=== PATIENT | female | born 1945 | race Native Hawaiian/Other Pacific Islander ===

== ENCOUNTER 2017-08-31 13:54 | Emergency (ER) | payer MEDICARE ==
[2017-08-31] MEDS ORDERED: methylPREDNISolone SOD SUCCI 125 MG/2 ML VIAL IV STA (14:09)
[2017-08-31] MEDS ORDERED: IPRATROPIUM-ALBUTEROL 3 ML NEB INHALATION STA (14:09)
[2017-08-31 14:46] LABS: Basophils # (A) 0.1 k/uL (0-0.2); Basophils % (A) 1 %; Eosinophils # (A) 0.2 k/uL (0-0.7); Eosinophils % (A) 2 %; HCT 40.5 % (34.0-46.0); HGB 13.5 gm/dL (11.4-16.0); Lymphocytes # (A) 1.1 k/uL (1.0-4.8); Lymphocytes % (A) 14 %; MCH 31.1 pg (25.0-35.0); MCHC 33.3 g/dL (31.0-37.0); MCV 93.2 fL (80.0-100.0); Mean Platelet Volume 7.2; Monocytes # (A) 0.6 k/uL (0-1.0); Monocytes % (A) 7 %; Neutrophils # (A) 6.2 k/uL (1.3-7.7); Neutrophils % (A) 74 %; Platelet Count 217 k/uL (150-450); RBC 4.34 m/uL (3.80-5.40); WBC 8.3 k/uL (3.8-10.6)
[2017-08-31 14:50] LABS: Partial Thromboplastin Time 22.3 sec (22.0-30.0); Prothrombin Time 9.8 sec (9.0-12.0)
[2017-08-31 14:56] LABS: ALT 31 U/L (9-52); AST 26 U/L (14-36); Albumin 4.1 g/dL (3.5-5.0); Alkaline Phosphatase 104 U/L (38-126); Anion Gap 13 mmol/L; Blood Urea Nitrogen 26 mg/dL (7-17); Calcium 9.3 mg/dL (8.4-10.2); Carbon Dioxide 29 mmol/L (22-30); Chloride 100 mmol/L (98-107); Glucose 93 mg/dL (74-99); Potassium 4.4 mmol/L (3.5-5.1); Sodium 142 mmol/L (137-145); Total Bilirubin 0.6 mg/dL (0.2-1.3); Total Protein 7.2 g/dL (6.3-8.2)
[2017-08-31 15:10] LABS: Creatine Kinase 67 U/L (30-135)
[2017-08-31 15:20] LABS: Creatine Kinase MB 1.1 ng/mL (0.0-2.4)
[2017-08-31 15:24] LABS: Troponin I <0.012 ng/mL (0.000-0.034)
--- NOTE | 2017-08-31 15:41 | XR ---
EXAMINATION TYPE: XR chest 2V DATE OF EXAM: 08/31/2017 COMPARISON: 05/23/2013 HISTORY: Shortness of breath with history of COPD difficulty breathing TECHNIQUE: Frontal and lateral views of the chest are obtained. FINDINGS: The lungs are hyperexpanded with chronic interstitial changes. Biapical pleural-parenchyma l thickening is seen, right greater than left. Bullous emphysematous changes are seen in the lung api dawna. There is mild dextroscoliosis of the thoracic spine. There is diffuse osseous demineralization n oted. No pneumothorax or pleural effusion. IMPRESSION: Chronic bullous emphysematous changes with no new focal consolidation to suggest pneumon ia.
--- NOTE | 2017-08-31 15:47 | ED ---
SOB HPI - General Chief Complaint: Shortness of Breath Stated Complaint: SOB Time Seen by Provider: 08/31/17 14:05 Source: patient, RN notes reviewed Mode of arrival: ambulatory Limitations: no limitations - History of Present Illness Initial Comments: This a 72-year-old female presents emergency Department chief complaint of dyspnea. Patient states that she's had some shortness breath last few days. Patient states that this is primarily related to the humidity and increase in temperature. Patient states she does not have air conditioning. Patient states that her symptoms have greatly improved since leaving her house and in the car with urination and pain in the hospital. Patient denies any chest pain but states that she does have some chest tightness associated with shortness breath. 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 Krueger next week. Patient had an appointment with PCP today but missed it due to her condition. Patient is chronic COPD or continue to smoke. She does not have a nebulizer at home. Patient reports no fever no chills. Patient does have slight phlegm with her cough. - Related Data Home Medications Medication Instructions Recorded Confirmed ALPRAZolam [Xanax] 0.25 mg PO BID PRN 08/31/17 08/31/17 Albuterol Sulfate [Proair Hfa] 2 puff INHALATION RT-QID 08/31/17 08/31/17 Aspirin 81 mg PO DAILY 08/31/17 08/31/17 Atorvastatin [Lipitor] 20 mg PO DAILY 08/31/17 08/31/17 Budesonide/Formoterol Fumarate 2 puff INHALATION RT-BID 08/31/17 08/31/17 [Symbicort 160-4.5 Mcg Inhaler] Calcium Carbonate [Calcium] 600 mg PO DAILY 08/31/17 08/31/17 Cholecalciferol [Vitamin D3] 1,000 unit PO DAILY 08/31/17 08/31/17 Enalapril [Vasotec] 10 mg PO DAILY 08/31/17 08/31/17 Furosemide [Lasix] 20 mg PO BID 08/31/17 08/31/17 Ibuprofen [Motrin Ib] 400 mg PO Q6H PRN 08/31/17 08/31/17 Levothyroxine Sodium [Synthroid] 112 mcg PO DAILY 08/31/17 08/31/17 [place]inderhook-3 Fatty Acids/Fish Oil [Fish 1 cap PO HS 08/31/17 08/31/17 Oil 1,000 mg Softgel] Potassium Chloride [K-Tab ER] 10 meq PO DAILY 08/31/17 08/31/17 Ubidecarenone [Co Q-10] 100 mg PO HS 08/31/17 08/31/17 cloNIDine HCL [Catapres] 0.1 mg PO DAILY 08/31/17 08/31/17 Previous Rx's Medication Instructions Recorded Levofloxacin [Levaquin] 500 mg PO DAILY #7 tab 08/31/17 predniSONE 50 mg PO DAILY #5 tab 08/31/17 Allergies Allergy/AdvReac Type Severity Reaction Status Date / Time azithromycin [From Zithromax] Allergy Rash/Hives Verified 08/31/17 14:01 shellfish derived [Shrimp] Allergy Vomiting Verified 08/31/17 14:23 Review of Systems ROS Statement: Those systems with pertinent positive or pertinent negative responses have been documented in the HPI. ROS Other: All systems not noted in ROS Statement are negative. Past Medical History Past Medical History: Heart Failure, COPD, Hyperlipidemia, Hypertension History of Any Multi-Drug Resistant Organisms: None Reported Past Surgical History: No Surgical Hx Reported Past Psychological History: No Psychological Hx Reported Smoking Status: Current every day smoker Past Alcohol Use History: None Reported Past Drug Use History: None Reported General Exam Limitations: no limitations General appearance: alert, in no apparent distress Head exam: Present: atraumatic, normocephalic, normal inspection Eye exam: Present: normal appearance, PERRL, EOMI. Absent: scleral icterus, conjunctival injection, periorbital swelling ENT exam: Present: normal exam, normal oropharynx, mucous membranes moist Neck exam: Present: normal inspection, full ROM. Absent: tenderness, meningismus, lymphadenopathy Respiratory exam: Present: wheezes (Minimal). Absent: normal lung sounds bilaterally, respiratory distress, rales, rhonchi, stridor Cardiovascular Exam: Present: regular rate, normal rhythm, normal heart sounds. Absent: systolic murmur, diastolic murmur, rubs, gallop, clicks Skin exam: Present: warm, dry, intact, normal color. Absent: rash Course Vital Signs 08/31/17 08/31/17 08/31/17 13:57 14:09 14:31 Temperature 95.6 F L Pulse Rate 87 77 Respiratory 28 H 18 18 Rate Blood Pressure 120/61 134/62 O2 Sat by Pulse 96 97 Oximetry 08/31/17 08/31/17 08/31/17 14:46 15:03 15:11 Temperature 98.1 F Pulse Rate 75 77 Respiratory Rate Blood Pressure O2 Sat by Pulse Oximetry 08/31/17 15:54 Temperature 98.5 F Pulse Rate 79 Respiratory 16 Rate Blood Pressure 136/88 O2 Sat by Pulse 97 Oximetry - Reevaluation(s) Reevaluation #1: 08/31/17 16:03 Patient reevaluated states that she feels 100% improved at this time. Patient updated on results. 08/31/17 16:03 Medical Decision Making - Medical Decision Making 72-year-old female presents to the ER for shortness of breath. Patient has a mild COPD exacerbation.'s patient's symptoms also resolved with air conditioning in the vehicle in emergency department. Patient will be discharged with steroids, antibiotics and follow-up with PCP. - Lab Data Result diagrams: 08/31/17 14:28 08/31/17 14:28 Lab Results 08/31/17 08/31/17 08/31/17 Range/Units 14:28 14:28 14:28 WBC 8.3 (3.8-10.6) k/uL RBC 4.34 (3.80-5.40) m/uL Hgb 13.5 (11.4-16.0) gm/dL Hct 40.5 (34.0-46.0) % MCV 93.2 (80.0-100.0) fL MCH 31.1 (25.0-35.0) pg MCHC 33.3 (31.0-37.0) g/dL RDW 13.0 (11.5-15.5) % Plt Count 217 (150-450) k/uL Neutrophils % 74 % Lymphocytes % 14 % Monocytes % 7 % Eosinophils % 2 % Basophils % 1 % Neutrophils # 6.2 (1.3-7.7) k/uL Lymphocytes # 1.1 (1.0-4.8) k/uL Monocytes # 0.6 (0-1.0) k/uL Eosinophils # 0.2 (0-0.7) k/uL Basophils # 0.1 (0-0.2) k/uL PT (9.0-12.0) sec INR (<1.2) APTT (22.0-30.0) sec Sodium 142 (137-145) mmol/L Potassium 4.4 (3.5-5.1) mmol/L Chloride 100 (98-107) mmol/L Carbon Dioxide 29 (22-30) mmol/L Anion Gap 13 mmol/L BUN 26 H (7-17) mg/dL Creatinine 0.60 (0.52-1.04) mg/dL Est GFR (CKD-EPI)AfAm >90 (>60 ml/min/1.73 sqM) Est GFR (CKD-EPI)NonAf >90 (>60 ml/min/1.73 sqM) Glucose 93 (74-99) mg/dL Calcium 9.3 (8.4-10.2) mg/dL Magnesium 2.0 (1.6-2.3) mg/dL Total Bilirubin 0.6 (0.2-1.3) mg/dL AST 26 (14-36) U/L ALT 31 (9-52) U/L Alkaline Phosphatase 104 (38-126) U/L Total Creatine Kinase 67 (30-135) U/L CK-MB (CK-2) 1.1 (0.0-2.4) ng/mL CK-MB (CK-2) Rel Index 1.6 Troponin I <0.012 (0.000-0.034) ng/mL NT-Pro-B Natriuret Pep pg/mL Total Protein 7.2 (6.3-8.2) g/dL Albumin 4.1 (3.5-5.0) g/dL 08/31/17 08/31/17 Range/Units 14:28 14:28 WBC (3.8-10.6) k/uL RBC (3.80-5.40) m/uL Hgb (11.4-16.0) gm/dL Hct (34.0-46.0) % MCV (80.0-100.0) fL MCH (25.0-35.0) pg MCHC (31.0-37.0) g/dL RDW (11.5-15.5) % Plt Count (150-450) k/uL Neutrophils % % Lymphocytes % % Monocytes % % Eosinophils % % Basophils % % Neutrophils # (1.3-7.7) k/uL Lymphocytes # (1.0-4.8) k/uL Monocytes # (0-1.0) k/uL Eosinophils # (0-0.7) k/uL Basophils # (0-0.2) k/uL PT 9.8 (9.0-12.0) sec INR 1.0 (<1.2) APTT 22.3 (22.0-30.0) sec Sodium (137-145) mmol/L Potassium (3.5-5.1) mmol/L Chloride (98-107) mmol/L Carbon Dioxide (22-30) mmol/L Anion Gap mmol/L BUN (7-17) mg/dL Creatinine (0.52-1.04) mg/dL Est GFR (CKD-EPI)AfAm (>60 ml/min/1.73 sqM) Est GFR (CKD-EPI)NonAf (>60 ml/min/1.73 sqM) Glucose (74-99) mg/dL Calcium (8.4-10.2) mg/dL Magnesium (1.6-2.3) mg/dL Total Bilirubin (0.2-1.3) mg/dL AST (14-36) U/L ALT (9-52) U/L Alkaline Phosphatase (38-126) U/L Total Creatine Kinase (30-135) U/L CK-MB (CK-2) (0.0-2.4) ng/mL CK-MB (CK-2) Rel Index Troponin I (0.000-0.034) ng/mL NT-Pro-B Natriuret Pep 284 pg/mL Total Protein (6.3-8.2) g/dL Albumin (3.5-5.0) g/dL - EKG Data EKG Comments: EKG performed at 14:36 normal sinus rhythm with a rate of 73 CT 140 QRS 82 QT/ QTC 420/471 Disposition Clinical Impression: COPD exacerbation Disposition: HOME SELF-CARE Condition: Stable Instructions: COPD (Chronic Obstructive Pulmonary Disease) (ED) Additional Instructions: Please return to the Emergency Department if symptoms worsen or any other concerns. Prescriptions: Levofloxacin [Levaquin] 500 mg PO DAILY #7 tab predniSONE 50 mg PO DAILY #5 tab Is patient prescribed a controlled substance at d/c from ED?: No Referrals: Tank Kenney MD [Primary Care Provider] - 1-2 days Time of Disposition: 16:05
[2017-08-31 15:56] VITALS: BP 136/88; PULSE 79; RESP 16; TEMP 98.5
== END 2017-08-31 16:20 | disposition home or self-care (01) ==
LOC: EC 13:54
DX: J44.1 Chronic obstructive pulmonary disease with (acute) exacerbation (principal); E78.5 Hyperlipidemia, unspecified; I11.0 Hypertensive heart disease with heart failure; I50.9 Heart failure, unspecified; F17.200 Nicotine dependence, unspecified, uncomplicated; Z79.51 Long term (current) use of inhaled steroids; Z79.82 Long term (current) use of aspirin; Z79.899 Other long term (current) drug therapy; Z88.1 Allergy status to other antibiotic agents; Z91.013 Allergy to seafood
CPT/HCPCS: 36415; 94640; 93005; 83880; 80053; 82550; 82553; 83735; 84484; 85025; 85610; 85730; 71046; 99285; 96374; J2930

== ENCOUNTER 2022-02-02 10:54 | Inpatient (IN) | payer MEDICARE ==
[2022-02-02 12:22] LABS: Basophils # (A) 0.1 k/uL (0-0.2); Basophils % (A) 0 %; Eosinophils # (A) 0.1 k/uL (0-0.7); Eosinophils % (A) 0 %; HCT 34.9 % (34.0-46.0); HGB 11.4 gm/dL (11.4-16.0); Hypochromasia Slight; Lymphocytes # (A) 0.5 k/uL (1.0-4.8); Lymphocytes % (A) 2 %; MCH 30.1 pg (25.0-35.0); MCHC 32.7 g/dL (31.0-37.0); MCV 92.1 fL (80.0-100.0); Mean Platelet Volume 8.4; Monocytes # (A) 0.7 k/uL (0-1.0); Monocytes % (A) 3 %; Neutrophils # (A) 22.9 k/uL (1.3-7.7); Neutrophils % (A) 94 %; Platelet Count 367 k/uL (150-450); RBC 3.79 m/uL (3.80-5.40); RDW 14.1 % (11.5-15.5); WBC 24.3 k/uL (3.8-10.6)
[2022-02-02 12:26] LABS: Albumin 3.1 g/dL (3.5-5.0); Calcium 8.1 mg/dL (8.4-10.2); Total Bilirubin 0.7 mg/dL (0.2-1.3); Total Protein 6.1 g/dL (6.3-8.2)
[2022-02-02 12:36] LABS: Partial Thromboplastin Time 22.5 sec (22.0-30.0); Potassium 4.2 mmol/L (3.5-5.1); Prothrombin Time 10.6 sec (9.0-12.0)
--- NOTE | 2022-02-02 12:57 | ED ---
SOB HPI - General Chief Complaint: Shortness of Breath Stated Complaint: SOB Time Seen by Provider: 02/02/22 11:15 Source: patient Mode of arrival: ambulatory Limitations: no limitations - History of Present Illness Initial Comments: 76-year-old female past history of COPD on 3 L home O2 who presents to the emergency department with shortness of breath. She was just discharged from [facility] yesterday after she tested positive for Covid and pneumonia. Discharged on steroids and antibiotics. Has been taking her medications as directed however today became increasingly short of breath. Patient was found to be saturating 83% on 6 L with increased work of breathing. Denies fevers. No loss of sense of smell. Denies chest pain. No cardiac history to me. No other alleviating, precipitating or modifying factors. - Related Data Home Medications Medication Instructions Recorded Confirmed ALPRAZolam [Xanax] 0.25 mg PO HS PRN 08/31/17 02/02/22 Albuterol Sulfate [Proair Hfa] 2 puff INHALATION RT-QID PRN 08/31/17 02/02/22 Atorvastatin [Lipitor] 20 mg PO DAILY 08/31/17 02/02/22 Budesonide/Formoterol Fumarate 2 puff INHALATION RT-BID 08/31/17 02/02/22 [Symbicort 160-4.5 Mcg Inhaler] Enalapril [Vasotec] 10 mg PO DAILY 08/31/17 02/02/22 Furosemide [Lasix] 20 mg PO BID 08/31/17 02/02/22 Ascorbic Acid [Vitamin C] 500 mg PO DAILY 02/02/22 02/02/22 Cholecalciferol [Vitamin D3 (25 50 mcg PO DAILY 02/02/22 02/02/22 Mcg = 1000 Iu)] Dicyclomine [Bentyl] 10 mg PO DAILY PRN 02/02/22 02/02/22 Ipratropium-Albuterol Nebulize 3 ml INHALATION RT-QID PRN 02/02/22 02/02/22 [Duoneb 0.5 mg-3 mg/3 ml Soln] Levofloxacin [Levaquin] 250 mg PO DAILY 02/02/22 02/02/22 Levothyroxine Sodium [Synthroid] 88 mcg PO DAILY 02/02/22 02/02/22 Nicotine 21Mg/24Hr Patch [Habitrol] 1 patch TRANSDERM DAILY 02/02/22 02/02/22 Omeprazole 20 mg PO DAILY 02/02/22 02/02/22 Ondansetron [Zofran] 4 mg PO BID PRN 02/02/22 02/02/22 Potassium Chloride [Potassium 10 meq PO DAILY 02/02/22 02/02/22 Chloride ER] guaiFENesin [Mucinex] 1,200 mg PO BID 02/02/22 02/02/22 predniSONE See Taper PO DIRECTED 02/02/22 02/02/22 Allergies Allergy/AdvReac Type Severity Reaction Status Date / Time azithromycin [From Zithromax] Allergy Rash/Hives Verified 02/02/22 14:17 & Hot Flashes shellfish derived [Shrimp] AdvReac Vomiting Verified 02/02/22 14:17 zinc AdvReac Nausea & Verified 02/02/22 14:17 Vomiting Review of Systems ROS Statement: Those systems with pertinent positive or pertinent negative responses have been documented in the HPI. ROS Other: All systems not noted in ROS Statement are negative. Past Medical History Past Medical History: Heart Failure, COPD, Hyperlipidemia, Hypertension History of Any Multi-Drug Resistant Organisms: None Reported Past Surgical History: No Surgical Hx Reported Past Psychological History: No Psychological Hx Reported Smoking Status: Current every day smoker, Former smoker Past Alcohol Use History: None Reported Past Drug Use History: None Reported - Past Family History family Family Medical History: Diabetes Mellitus General Exam Limitations: no limitations General appearance: alert, in no apparent distress Head exam: Present: atraumatic, normocephalic, normal inspection Eye exam: Present: normal appearance, PERRL, EOMI. Absent: scleral icterus, c onjunctival injection, periorbital swelling ENT exam: Present: normal exam, mucous membranes moist Neck exam: Present: normal inspection. Absent: tenderness, meningismus, lymphadenopathy Respiratory exam: Present: respiratory distress, rales, accessory muscle use, decreased breath sounds, other (tachypnia). Absent: rhonchi, stridor Cardiovascular Exam: Present: regular rate, normal rhythm, normal heart sounds. Absent: systolic murmur, diastolic murmur, rubs, gallop, clicks GI/Abdominal exam: Present: soft, normal bowel sounds. Absent: distended, tenderness, guarding, rebound, rigid Extremities exam: Present: normal inspection, full ROM, normal capillary refill. Absent: tenderness, pedal edema, joint swelling, calf tenderness Back exam: Present: normal inspection Neurological exam: Present: alert, oriented X3, CN II-XII intact Psychiatric exam: Present: normal affect, normal mood Skin exam: Present: warm, dry, intact, normal color. Absent: rash Course Vital Signs 02/02/22 02/02/22 02/02/22 11:02 12:04 12:25 Temperature 98.4 F Pulse Rate 87 Respiratory 40 H 24 Rate Blood Pressure 105/55 O2 Sat by Pulse 83 L 92 L Oximetry 02/02/22 02/02/22 02/02/22 12:30 13:39 13:51 Temperature Pulse Rate 73 87 93 Respiratory 31 H Rate Blood Pressure O2 Sat by Pulse 94 L Oximetry 02/02/22 02/02/22 02/02/22 14:00 15:30 16:00 Temperature Pulse Rate 85 84 86 Respiratory 22 25 H 20 Rate Blood Pressure 106/62 123/66 123/66 O2 Sat by Pulse 95 95 95 Oximetry 02/02/22 02/02/22 17:00 18:00 Temperature Pulse Rate 89 82 Respiratory 24 23 Rate Blood Pressure 122/64 141/62 O2 Sat by Pulse 96 96 Oximetry Medical Decision Making - Medical Decision Making Upon arrival patient was placed into room 8. Thorough history and physical exam is performed. She is placed on a nonrebreather due to increased work of breathing. IV is established traces are conducted. White count 24.3. D-dimer 7.87. Chest x-ray demonstrates left basilar patchy airspace disease. I did perform a CTA which demonstrates left lower lobe patchy consolidation. No evidence for pulmonary embolism. Discuss results with the patient. Due to her hypoxia she will be admitted. Spoke with Dr. Celestino preciado who agreed to admit the patient. - Lab Data Result diagrams: 02/05/22 07:58 02/06/22 07:16 Lab Results 02/02/22 02/02/22 02/02/22 Range/Units 12:00 12:00 12:00 WBC 24.3 H (3.8-10.6) k/uL RBC 3.79 L (3.80-5.40) m/uL Hgb 11.4 (11.4-16.0) gm/dL Hct 34.9 (34.0-46.0) % MCV 92.1 (80.0-100.0) fL MCH 30.1 (25.0-35.0) pg MCHC 32.7 (31.0-37.0) g/dL RDW 14.1 (11.5-15.5) % Plt Count 367 (150-450) k/uL MPV 8.4 Neutrophils % 94 % Lymphocytes % 2 % Monocytes % 3 % Eosinophils % 0 % Basophils % 0 % Neutrophils # 22.9 H (1.3-7.7) k/uL Lymphocytes # 0.5 L (1.0-4.8) k/uL Monocytes # 0.7 (0-1.0) k/uL Eosinophils # 0.1 (0-0.7) k/uL Basophils # 0.1 (0-0.2) k/uL Hypochromasia Slight PT 10.6 (9.0-12.0) sec INR 1.0 (<1.2) APTT 22.5 (22.0-30.0) sec D-Dimer 7.87 H (<0.60) mg/L FEU Sodium 139 (137-145) mmol/L Potassium 4.2 (3.5-5.1) mmol/L Chloride 103 (98-107) mmol/L Carbon Dioxide 29 (22-30) mmol/L Anion Gap 7 mmol/L BUN 33 H (7-17) mg/dL Creatinine 0.89 (0.52-1.04) mg/dL Est GFR (CKD-EPI)AfAm 72 (>60 ml/min/1.73 sqM) Est GFR (CKD-EPI)NonAf 63 (>60 ml/min/1.73 sqM) Glucose 126 H (74-99) mg/dL Lactic Ac Sepsis Rflx Plasma Lactic Acid Bharathi (0.7-2.0) mmol/L Calcium 8.1 L (8.4-10.2) mg/dL Magnesium 2.0 (1.6-2.3) mg/dL Total Bilirubin 0.7 (0.2-1.3) mg/dL AST 31 (14-36) U/L ALT 24 (4-34) U/L Alkaline Phosphatase 66 (38-126) U/L Troponin I (0.000-0.034) ng/mL NT-Pro-B Natriuret Pep pg/mL Total Protein 6.1 L (6.3-8.2) g/dL Albumin 3.1 L (3.5-5.0) g/dL Procalcitonin (0.02-0.09) ng/mL Influenza Type A RNA (Not Detectd) Influenza Type B (PCR) (Not Detectd) 02/02/22 02/02/22 02/02/22 Range/Units 12:00 12:00 12:00 WBC (3.8-10.6) k/uL RBC (3.80-5.40) m/uL Hgb (11.4-16.0) gm/dL Hct (34.0-46.0) % MCV (80.0-100.0) fL MCH (25.0-35.0) pg MCHC (31.0-37.0) g/dL RDW (11.5-15.5) % Plt Count (150-450) k/uL MPV Neutrophils % % Lymphocytes % % Monocytes % % Eosinophils % % Basophils % % Neutrophils # (1.3-7.7) k/uL Lymphocytes # (1.0-4.8) k/uL Monocytes # (0-1.0) k/uL Eosinophils # (0-0.7) k/uL Basophils # (0-0.2) k/uL Hypochromasia PT (9.0-12.0) sec INR (<1.2) APTT (22.0-30.0) sec D-Dimer (<0.60) mg/L FEU Sodium (137-145) mmol/L Potassium (3.5-5.1) mmol/L Chloride (98-107) mmol/L Carbon Dioxide (22-30) mmol/L Anion Gap mmol/L BUN (7-17) mg/dL Creatinine (0.52-1.04) mg/dL Est GFR (CKD-EPI)AfAm (>60 ml/min/1.73 sqM) Est GFR (CKD-EPI)NonAf (>60 ml/min/1.73 sqM) Glucose (74-99) mg/dL Lactic Ac Sepsis Rflx Plasma Lactic Acid Bharathi 2.1 H* (0.7-2.0) mmol/L Calcium (8.4-10.2) mg/dL Magnesium (1.6-2.3) mg/dL Total Bilirubin (0.2-1.3) mg/dL AST (14-36) U/L ALT (4-34) U/L Alkaline Phosphatase (38-126) U/L Troponin I <0.012 (0.000-0.034) ng/mL NT-Pro-B Natriuret Pep 2120 pg/mL Total Protein (6.3-8.2) g/dL Albumin (3.5-5.0) g/dL Procalcitonin (0.02-0.09) ng/mL Influenza Type A RNA (Not Detectd) Influenza Type B (PCR) (Not Detectd) 02/02/22 02/02/22 02/02/22 Range/Units 12:00 12:00 12:39 WBC (3.8-10.6) k/uL RBC (3.80-5.40) m/uL Hgb (11.4-16.0) gm/dL Hct (34.0-46.0) % MCV (80.0-100.0) fL MCH (25.0-35.0) pg MCHC (31.0-37.0) g/dL RDW (11.5-15.5) % Plt Count (150-450) k/uL MPV Neutrophils % % Lymphocytes % % Monocytes % % Eosinophils % % Basophils % % Neutrophils # (1.3-7.7) k/uL Lymphocytes # (1.0-4.8) k/uL Monocytes # (0-1.0) k/uL Eosinophils # (0-0.7) k/uL Basophils # (0-0.2) k/uL Hypochromasia PT (9.0-12.0) sec INR (<1.2) APTT (22.0-30.0) sec D-Dimer (<0.60) mg/L FEU Sodium (137-145) mmol/L Potassium (3.5-5.1) mmol/L Chloride (98-107) mmol/L Carbon Dioxide (22-30) mmol/L Anion Gap mmol/L BUN (7-17) mg/dL Creatinine (0.52-1.04) mg/dL Est GFR (CKD-EPI)AfAm (>60 ml/min/1.73 sqM) Est GFR (CKD-EPI)NonAf (>60 ml/min/1.73 sqM) Glucose (74-99) mg/dL Lactic Ac Sepsis Rflx Y Plasma Lactic Acid Bharathi (0.7-2.0) mmol/L Calcium (8.4-10.2) mg/dL Magnesium (1.6-2.3) mg/dL Total Bilirubin (0.2-1.3) mg/dL AST (14-36) U/L ALT (4-34) U/L Alkaline Phosphatase (38-126) U/L Troponin I (0.000-0.034) ng/mL NT-Pro-B Natriuret Pep pg/mL Total Protein (6.3-8.2) g/dL Albumin (3.5-5.0) g/dL Procalcitonin 0.12 H (0.02-0.09) ng/mL Influenza Type A RNA Not Detected (Not Detectd) Influenza Type B (PCR) Not Detected (Not Detectd) - EKG Data EKG Comments: EKG interpreted by myself. Demonstrates sinus rhythm with a rate of 81. [place] interval 148. QRS 121. QTC of 450. Some PVCs. No acute ST segment elevations or depression. Baseline artifact Disposition Clinical Impression: COVID-19, CAP (community acquired pneumonia), Chronic respiratory disease, Hypoxia, Leukocytosis Disposition: ADMITTED IP TO THIS HOSP Condition: Serious Is patient prescribed a controlled substance at d/c from ED?: No Time of Disposition: 15:27 Decision to Admit Reason: Admit from EC Decision Date: 02/02/22 Decision Time: 15:27
--- NOTE | 2022-02-02 13:03 | XR ---
EXAMINATION TYPE: XR chest 1V portable DATE OF EXAM: 02/02/2022 12:39 PM COMPARISON: Chest radiographs from 08/29/2021. TECHNIQUE: XR chest 1V portable Frontal view of the chest. CLINICAL INDICATION:Female, 76 years old with history of sob; FINDINGS: Lungs/Pleura: No pneumothorax. Chronic interstitial changes. Left basilar patchy airspace disease. Sm all left pleural effusion. Pulmonary vascularity: Unremarkable. Heart/mediastinum: Cardiomediastinal silhouette is partially obscured due to overlying and adjacent o pacities. Atherosclerotic calcifications are seen in the aorta. Musculoskeletal: No acute osseous pathology. IMPRESSION: 1. Left basilar patchy airspace disease with small left pleural effusion. Findings are concerning fo r pneumonia. 2. Chronic changes.
[2022-02-02] MEDS ORDERED: ALBUTEROL NEBULIZED 2.5 MG/3 ML INHALATION PRN (13:14)
[2022-02-02] MEDS ORDERED: FAMOTIDINE 20 MG/2 ML VIAL IV STA (13:21)
[2022-02-02] MEDS ORDERED: diphenhydrAMINE 50 MG/ML 1 ML VIAL IVP STA (13:21)
[2022-02-02] MEDS ORDERED: methylPREDNISolone SOD SUCCI 125 MG/2 ML VIAL IV STA (13:21)
[2022-02-02] MEDS ORDERED: PNEUMONIA PROTOCOL UTILIZED 1 EACH MISC PO PRN (14:51)
--- NOTE | 2022-02-02 14:55 | CT ---
EXAMINATION TYPE: CT chest angio for PE CT DLP: 341 mGycm, Automated exposure control for dose reduction was used. DATE OF EXAM: 02/02/2022 2:39 PM COMPARISON: Chest radiograph from same day. CLINICAL INDICATION:Female, 76 years old with history of elevated d-dimer; SOB TECHNIQUE/CONTRAST: CTA scan of the thorax is performed with IV Contrast, patient injected with 60 mL of Isovue 370, pulm onary embolism protocol. MIP images are created and reviewed. FINDINGS: Motion degraded examination. Pulmonary Artery: There is no evidence for a filling defect within the pulmonary vasculature to sugge st acute pulmonary embolism. The pulmonary artery is large measuring 4.0 cm in transverse dimension. Lungs/Pleura: Biapical pleural-parenchymal scarring. Patchy left lower lobe consolidation. Moderate t o severe centrilobular and paraseptal emphysematous changes. Additional scattered regions of fibrotic changes throughout the lungs. No pneumothorax. Airway: Large airways are patent. Heart: Mildly enlarged heart. Trace pericardial effusion. Severe coronary arterial calcifications. Vasculature: No evidence of aortic aneurysm. Atherosclerotic calcification of the aorta. Mediastinum: Few enlarged mediastinal lymph nodes with an example including an AP window lymph node m easuring up to 1.1 cm short axis, likely reactive. Musculoskeletal: No acute osseous abnormalities. Dextrocurvature of the thoracic spine. Mild degenera tive changes of the visualized spine. Soft Tissues: Bilateral gynecomastia. Mild anasarca. Lower neck: No significant findings. Upper Abdomen: Small to moderate sized hiatal hernia.. IMPRESSION: 1. No evidence of pulmonary embolism. 2. Left lower lobe patchy consolidation concerning for pneumonia. 3. Small left pleural effusion likely related to #2. 4. Few enlarged mediastinal lymph nodes are likely reactive to #2. 5. Moderate to severe COPD changes. 6. Dilated main pulmonary artery which can be seen in the setting of pulmonary arterial hypertension.
[2022-02-02] MEDS ORDERED: NALOXONE 0.4 MG/ML 1 ML VIAL IV PRN (15:20)
[2022-02-02] MEDS: PIPERACILLIN-TAZOBACTAM 3.375 GM in SODIUM CHLORIDE 0.9% 100 ML IVPB SCH (15:27)
[2022-02-02] MEDS ORDERED: VANCOMYCIN IV PER PHARMACY 1 EACH MISC MISCELLANE PRN (16:29)
[2022-02-02] MEDS ORDERED: MELATONIN 5 MG TABLET PO PRN (16:30)
--- NOTE | 2022-02-02 16:35 | P.HPIM ---
History of Present Illness H&P Date: 02/02/22 Chief Complaint: shortness of breath Patient is a 76-year-old female with COPD on home O2 at 3 L, and just of heart failure, hypertension, and dyslipidemia who presented to the ER at the direction of her primary care physician due to hypoxemia. Patient was discharged home from [facility] yesterday after being found positive for COVID-19 and pneumonia. She is to be taking steroids and antibiotics. At home she was saturating 83% on 6 L with some increased work of breathing. She required a nonrebreather secondary to increased work of breathing. Initial laboratory evaluation was remarkable for acute white blood cell count of 24.3, d-dimer 7.87, BUN 33, lactic acid 2.1. Influenza A and B were negative. Chest x-ray showed patchy lower lobe infiltrate. Chest x-ray showed no evidence of pulmonary embolism with left lower lobe patchy consolidation concerning for pneumonia, small left pleural effusion, moderate to severe COPD changes, and few enlarged mediastinal lymph nodes. In the ER she was started on bronchodilators. Arrangements are made for admission. Patient seen and examined at bedside. Patient reports that she has not been feeling well for approximately the last 2 weeks. She reports no known cold exposures. She reports that she has been having a nonproductive cough, fatigue, and shortness of breath. Shortness of breath is worse with exertion and better with rest. She reports initially she had a low appetite but that has resolved. She reports she was just discharged from [facility] yesterday. She has no additional complaints currently. She sees Dr. Rand is typically on 3 L nasal cannula. She has fallen twice in the last several weeks. She reports some hip and shoulder pain since then but is progressively getting better. Pertinent positives and negatives as discussed in HPI, a complete review of systems was performed and all other systems are negative. Vital signs reviewed General: nontoxic, no distress, appears at stated age Derm: warm, dry Head: atraumatic, normocephalic, symmetric Eyes: EOMI, no lid lag, anicteric sclera, pupils equal round reactive to light ENT: Nose and ears atraumatic, no thrush, no pharyngeal erythema Neck: No thyromegaly, no cervical lymphadenopathy, trachea midline, supple Mouth: no lip lesion, mucus membranes dry Cardiovascular: S1S2 reg, no murmur, positive posterior tibial pulse bilateral, trace edema, capillary refill less than 2 seconds Lungs: Course bs b/l, + 3 word conversational dyspnea, no accessory muscle use Abdominal: soft, nontender to palpation, no guarding, no appreciable organomegaly, normal bowel sounds Ext: no gross muscle atrophy, muscle strength 4 out of 5 in all 4 extremities, no contractures Neuro: CN II-XII grossly intact, light touch intact all 4 extremities, finger to nose poor b/l Psych: Alert, oriented, mild confusion but corrects with repeat questioning Assessment/Plan: Pneumonia, suspect possible bacterial given how lobar it is Acute on chronic hypoxic respiratory failure Acute exacerbation of COPD, moderate to severe on x-ray COVID-19 infection -Check pro calcitonin to evaluate for possible bacterial component of pneumonia -Given patient's severity of COPD and recent hospital stay would broaden antibiotics to Vanco and zosynck MRSA nasal swab and discontinue vancomycin as indicated -Bronchodilators -Steroids -Consult pulmonary - vit D and Vit C - intolerant to zinc due to n/v Heart failure, unknown ejection fraction Dyslipidemia Hypertension -Continue with Lasix, enalapril, Lipitor -Follow blood pressures -Patient is not chronically on beta blockers. Falls - PT/OT evaluation Hx of tobacco dependency - just quit after smoking since age 15 - continue nicotine replacement Chronic: GERD Hypothyroidism ABG pending at time of admission The patient is admitted with an anticipated greater than 2 midnight stay for evaluation of Acute respiraotry failure due to pneumonia. Surrogate decision-maker: daughter CODE STATUS: full DVT prophylaxis: Lovenox Discussed with: patient, ED provider Anticipated discharge date: Pending clinical course Anticipated discharge place: senior living versus home with home health A total of 65 minutes was spent on the care of this complex patient more than 50% of the time was spent in counseling and care coordination. Past Medical History Past Medical History: Heart Failure, COPD, Hyperlipidemia, Hypertension Additional Past Medical History / Comment(s): GERD, Hypothyroidism History of Any Multi-Drug Resistant Organisms: None Reported Past Surgical History: No Surgical Hx Reported Past Psychological History: No Psychological Hx Reported Smoking Status: Former smoker Past Alcohol Use History: None Reported Past Drug Use History: None Reported - Past Family History family Family Medical History: Diabetes Mellitus Medications and Allergies Home Medications Medication Instructions Recorded Confirmed Type ALPRAZolam [Xanax] 0.25 mg PO HS PRN 08/31/17 02/02/22 History Albuterol Sulfate [Proair Hfa] 2 puff INHALATION RT-QID PRN 08/31/17 02/02/22 History Atorvastatin [Lipitor] 20 mg PO DAILY 08/31/17 02/02/22 History Budesonide/Formoterol Fumarate 2 puff INHALATION RT-BID 08/31/17 02/02/22 History [Symbicort 160-4.5 Mcg Inhaler] Enalapril [Vasotec] 10 mg PO DAILY 08/31/17 02/02/22 History Furosemide [Lasix] 20 mg PO BID 08/31/17 02/02/22 History Ascorbic Acid [Vitamin C] 500 mg PO DAILY 02/02/22 02/02/22 History Cholecalciferol [Vitamin D3 (25 50 mcg PO DAILY 02/02/22 02/02/22 History Mcg = 1000 Iu)] Dicyclomine [Bentyl] 10 mg PO DAILY PRN 02/02/22 02/02/22 History Ipratropium-Albuterol Nebulize 3 ml INHALATION RT-QID PRN 02/02/22 02/02/22 History [Duoneb 0.5 mg-3 mg/3 ml Soln] Levofloxacin [Levaquin] 250 mg PO DAILY 02/02/22 02/02/22 History Levothyroxine Sodium [Synthroid] 88 mcg PO DAILY 02/02/22 02/02/22 History Nicotine 21Mg/24Hr Patch [Habitrol] 1 patch TRANSDERM DAILY 02/02/22 02/02/22 History Omeprazole 20 mg PO DAILY 02/02/22 02/02/22 History Ondansetron [Zofran] 4 mg PO BID PRN 02/02/22 02/02/22 History Potassium Chloride [Potassium 10 meq PO DAILY 02/02/22 02/02/22 History Chloride ER] guaiFENesin [Mucinex] 1,200 mg PO BID 02/02/22 02/02/22 History predniSONE See Taper PO DIRECTED 02/02/22 02/02/22 History Allergies Allergy/AdvReac Type Severity Reaction Status Date / Time azithromycin [From Zithromax] Allergy Rash/Hives Verified 02/02/22 14:17 & Hot Flashes shellfish derived [Shrimp] AdvReac Vomiting Verified 02/02/22 14:17 zinc AdvReac Nausea & Verified 02/02/22 14:17 Vomiting Physical Exam Osteopathic Statement: *. No significant issues noted on an osteopathic structural exam other than those noted in the History and Physical/Consult. Vitals: Vital Signs Temp Pulse Resp BP Pulse Ox 02/02/22 16:00 86 20 123/66 95 02/02/22 15:30 84 25 H 123/66 95 02/02/22 14:00 85 22 106/62 95 02/02/22 13:51 93 02/02/22 13:39 87 02/02/22 12:30 73 31 H 94 L 02/02/22 12:25 24 02/02/22 12:04 92 L 02/02/22 11:02 98.4 F 87 40 H 105/55 83 L Intake and Output 02/02/22 02/02/22 02/02/22 06:59 14:59 22:59 Other: Weight 66.678 kg Results CBC & Chem 7: 02/02/22 12:00 02/02/22 12:00 Labs: Abnormal Lab Results - Last 24 Hours (Table) 02/02/22 02/02/22 02/02/22 Range/Units 12:00 12:00 12:00 WBC 24.3 H (3.8-10.6) k/uL RBC 3.79 L (3.80-5.40) m/uL Neutrophils # 22.9 H (1.3-7.7) k/uL Lymphocytes # 0.5 L (1.0-4.8) k/uL D-Dimer 7.87 H (<0.60) mg/L FEU BUN 33 H (7-17) mg/dL Glucose 126 H (74-99) mg/dL Plasma Lactic Acid Bharathi (0.7-2.0) mmol/L Calcium 8.1 L (8.4-10.2) mg/dL Total Protein 6.1 L (6.3-8.2) g/dL Albumin 3.1 L (3.5-5.0) g/dL 02/02/22 Range/Units 12:00 WBC (3.8-10.6) k/uL RBC (3.80-5.40) m/uL Neutrophils # (1.3-7.7) k/uL Lymphocytes # (1.0-4.8) k/uL D-Dimer (<0.60) mg/L FEU BUN (7-17) mg/dL Glucose (74-99) mg/dL Plasma Lactic Acid Bharathi 2.1 H* (0.7-2.0) mmol/L Calcium (8.4-10.2) mg/dL Total Protein (6.3-8.2) g/dL Albumin (3.5-5.0) g/dL
[2022-02-02] MEDS ORDERED: VANCOMYCIN 1,250 MG in SODIUM CHLORIDE 0.9% 250 ML IVPB ONE (17:00)
[2022-02-02] MEDS: FUROSEMIDE 20 MG TAB PO SCH (17:10)
[2022-02-02] MEDS ORDERED: IBUPROFEN 400 MG TAB PO PRN (17:37)
[2022-02-02 18:09] LABS: ABG Base Excess 5.6 mmol/L; ABG HCO3 29 mmol/L (21-25); ABG PCO2 40 mmHg (35-45); ABG PH 7.48 (7.35-7.45); ABG PO2 66 mmHg (83-108); ABG TCO2 30 mmol/L (19-24); Allen Test Performed? Yes
[2022-02-02] MEDS: ALBUTEROL HFA INHALER INHALATION PRN (21:05)
[2022-02-02] MEDS: SYMBICORT 160-4.5 MCG INHALER INHALATION SCH (21:07)
[2022-02-02] MEDS: guaiFENesin 600 MG TABLET.ER PO SCH (22:10)
[2022-02-03] MEDS: PIPERACILLIN-TAZOBACTAM 3.375 GM in SODIUM CHLORIDE 0.9% 100 ML IVPB SCH ×4 (00:14→23:33)
[2022-02-03] MEDS: ALPRAZolam 0.25 MG TAB PO PRN ×3 (00:31→23:47)
[2022-02-03] MEDS: LEVOTHYROXINE 88 MCG TAB PO SCH (05:55)
[2022-02-03] MEDS ORDERED: VANCOMYCIN 1,250 MG in SODIUM CHLORIDE 0.9% 250 ML IVPB SCH (06:00)
[2022-02-03] MEDS: PANTOPRAZOLE 40 MG TABLET PO SCH (06:43)
--- NOTE | 2022-02-03 07:23 | XR ---
EXAMINATION TYPE: XR chest 1V DATE OF EXAM: 02/03/2022 HISTORY: Shortness of breath. COMPARISON: 02/02/2022 TECHNIQUE: Single view of the chest is submitted. FINDINGS: Demonstrated are scattered senescent parenchymal change. Left lower lobe infiltrate persists although is improving. Right apical scarring persists. The heart is stable. Hilar and mediastinal structures are within normal limits. Degenerative changes are seen of the dorsal spine. IMPRESSION: 1. Left lower lobe infiltrate persists although is improving.
[2022-02-03] MEDS: SYMBICORT 160-4.5 MCG INHALER INHALATION SCH ×2 (07:30→19:23)
[2022-02-03] MEDS: ALBUTEROL HFA INHALER INHALATION PRN ×4 (07:32→19:23)
--- NOTE | 2022-02-03 07:53 | US ---
EXAMINATION TYPE: US venous doppler duplex LE BI DATE OF EXAM: 02/03/2022 7:38 AM COMPARISON: NONE CLINICAL HISTORY: r/o DVT. SIDE PERFORMED: Bilateral TECHNIQUE: The lower extremity deep venous system is examined utilizing real time linear array sonog ishaan with graded compression, doppler sonography and color-flow sonography. VESSELS IMAGED: Common Femoral Vein Deep Femoral Vein Greater Saphenous Vein * Femoral Vein Popliteal Vein Small Saphenous Vein * Proximal Calf Veins (* superficial vessels) Right Leg: Negative for DVT Left Leg: Negative for DVT IMPRESSION: No evidence for DVT
[2022-02-03 08:23] LABS: Basophils # (A) 0.1 k/uL (0-0.2); Basophils % (A) 0 %; Eosinophils # (A) 0.1 k/uL (0-0.7); Eosinophils % (A) 0 %; HCT 32.6 % (34.0-46.0); HGB 10.2 gm/dL (11.4-16.0); Hypochromasia Moderate; Lymphocytes # (A) 0.7 k/uL (1.0-4.8); Lymphocytes % (A) 3 %; MCH 29.7 pg (25.0-35.0); MCHC 31.4 g/dL (31.0-37.0); MCV 94.4 fL (80.0-100.0); Mean Platelet Volume 7.9; Monocytes # (A) 0.8 k/uL (0-1.0); Monocytes % (A) 4 %; Neutrophils # (A) 18.8 k/uL (1.3-7.7); Neutrophils % (A) 92 %; Platelet Count 319 k/uL (150-450); RBC 3.45 m/uL (3.80-5.40); WBC 20.6 k/uL (3.8-10.6)
[2022-02-03 08:35] LABS: Calcium 7.8 mg/dL (8.4-10.2); Potassium 4.1 mmol/L (3.5-5.1)
[2022-02-03] MEDS: NICOTINE 21MG/24HR PATCH TRANSDERM SCH (08:59)
[2022-02-03] MEDS: CHOLECALCIFEROL 25 MCG (1000 IU) TABLET PO SCH (09:00)
[2022-02-03] MEDS: ENOXAPARIN 40 MG/0.4 ML SYRINGE SQ SCH (09:00)
[2022-02-03] MEDS: lisinopriL 20 MG TAB PO SCH (09:01)
[2022-02-03] MEDS: DEXAMETHASONE SOD PHOSPHATE 10 MG/ML 1 ML VIAL IVP SCH (09:01)
[2022-02-03] MEDS: FUROSEMIDE 20 MG TAB PO SCH ×2 (09:01→15:52)
[2022-02-03] MEDS: guaiFENesin 600 MG TABLET.ER PO SCH ×2 (09:01→21:21)
[2022-02-03] MEDS: ATORVASTATIN 20 MG TAB PO SCH (09:01)
[2022-02-03] MEDS: ASCORBIC ACID 500 MG TAB PO SCH (09:01)
--- NOTE | 2022-02-03 13:56 | P.CNPUL ---
History of Present Illness Consult date: 02/03/22 Requesting physician: Vesna Galicia Reason for consult: dyspnea, abnormal CXR/CT Chief complaint: Shortness of breath, cough, congestion History of present illness: This is a pleasant 76-year-old female patient with a known history of hypertension, hypothyroidism, hyperlipidemia, chronic pulmonary fibrosis with mostly scarring of the right apex, chronic and ongoing tobacco dependence, sever e oxygen dependent chronic obstructive pulmonary disease with an FEV1 value of 40% of predicted. She was recently admitted to [facility] with COVID-19 pneumonia. She was discharged on 01/01/2022 and then brought here to the emergency room on 01/02/2022 with ongoing issues with shortness of breath, cough and congestion. The patient is vaccinated but not boosted. Chest x-ray does reveal a left basilar patchy airspace disease with a small left effusion. Chronic interstitial changes noted. CT angiogram revealed no evidence of pulmonary embolism. There is again noted left lower lobe patchy consolidation. Small left pleural effusion. Dopplers of the bilateral lower extremity are negative for DVT. White count 20.6. Hemoglobin 10.2. Lymphocytes 0.7. Sodium 142. Potassium 4.1. BUN 29. Creatinine 0.89. Pro calcitonin 0.12. BNP 2120. Troponin negative. Influenza screen negative. Arterial blood gases on 45% FiO2 revealed a pO2 of 66, pCO2 of 40, pH 7.48. She is seen today in consultation on the regular medical floor. She is currently awake and alert in no acute distress. Maintaining O2 saturations in the 90s on 5 L high flow nasal cannula. She's been afebrile. Hemodynamically stable. She's been initiated on Albuterol HFA, Symbicort, Decadron. Lovenox for DVT prophylaxis. NicoDerm patch is in place. Antibiotics in the form of vancomycin and Zosyn. Review of Systems REVIEW OF SYSTEMS: CONSTITUTIONAL: Denies any recent significant weight loss or weight gain. EYES: Denies change in vision. EARS, NOSE, MOUTH, THROAT: Denies headaches, denies sore throat. CARDIOVASCULAR: Denies chest pain, palpitations or syncopal episodes. RESPIRATORY: Positive for shortness of breath, cough, congestion no hemoptysis. GASTROINTESTINAL: Denies change in appetite, denies abdominal pain GENITOURINARY: Denies hematuria, denies infections. MUSKULOSKELETAL: Denies pain, denies swelling. INTEGUMENTARY: Denies rash, denies eczema. NEUROLOGICAL: Denies recent memory loss, no recent seizure activity. PSYCHIATRIC: Denies anxiety, denies depression. HEMATOLOGIC/LYMPHATIC: Denies anemia, denies enlarged lymph nodes. Past Medical History Past Medical History: COPD, GERD/Reflux, Hyperlipidemia, Hypertension, Memory Impairment, Thyroid Disorder Additional Past Medical History / Comment(s): GERD, Hypothyroidism History of Any Multi-Drug Resistant Organisms: None Reported Past Surgical History: Section, Cholecystectomy, Hysterectomy, Joint Replacement Past Anesthesia/Blood Transfusion Reactions: No Reported Reaction Past Psychological History: No Psychological Hx Reported Smoking Status: Former smoker Past Alcohol Use History: None Reported Past Drug Use History: None Reported - Past Family History family Family Medical History: Diabetes Mellitus Medications and Allergies Home Medications Medication Instructions Recorded Confirmed Type ALPRAZolam [Xanax] 0.25 mg PO HS PRN 08/31/17 02/02/22 History Albuterol Sulfate [Proair Hfa] 2 puff INHALATION RT-QID PRN 08/31/17 02/02/22 History Atorvastatin [Lipitor] 20 mg PO DAILY 08/31/17 02/02/22 History Budesonide/Formoterol Fumarate 2 puff INHALATION RT-BID 08/31/17 02/02/22 History [Symbicort 160-4.5 Mcg Inhaler] Enalapril [Vasotec] 10 mg PO DAILY 08/31/17 02/02/22 History Furosemide [Lasix] 20 mg PO BID 08/31/17 02/02/22 History Ascorbic Acid [Vitamin C] 500 mg PO DAILY 02/02/22 02/02/22 History Cholecalciferol [Vitamin D3 (25 50 mcg PO DAILY 02/02/22 02/02/22 History Mcg = 1000 Iu)] Dicyclomine [Bentyl] 10 mg PO DAILY PRN 02/02/22 02/02/22 History Ipratropium-Albuterol Nebulize 3 ml INHALATION RT-QID PRN 02/02/22 02/02/22 History [Duoneb 0.5 mg-3 mg/3 ml Soln] Levofloxacin [Levaquin] 250 mg PO DAILY 02/02/22 02/02/22 History Levothyroxine Sodium [Synthroid] 88 mcg PO DAILY 02/02/22 02/02/22 History Nicotine 21Mg/24Hr Patch [Habitrol] 1 patch TRANSDERM DAILY 02/02/22 02/02/22 History Omeprazole 20 mg PO DAILY 02/02/22 02/02/22 History Ondansetron [Zofran] 4 mg PO BID PRN 02/02/22 02/02/22 History Potassium Chloride [Potassium 10 meq PO DAILY 02/02/22 02/02/22 History Chloride ER] guaiFENesin [Mucinex] 1,200 mg PO BID 02/02/22 02/02/22 History predniSONE See Taper PO DIRECTED 02/02/22 02/02/22 History Allergies Allergy/AdvReac Type Severity Reaction Status Date / Time azithromycin [From Zithromax] Allergy Rash/Hives Verified 02/02/22 14:17 & Hot Flashes shellfish derived [Shrimp] AdvReac Vomiting Verified 02/02/22 14:17 zinc AdvReac Nausea & Verified 02/02/22 14:17 Vomiting Physical Exam Vitals: Vital Signs Temp Pulse Pulse Resp BP BP BP 02/03/22 08:35 97.5 F L 83 22 116/56 02/03/22 07:30 02/03/22 04:00 97.7 F 67 18 133/82 02/03/22 02:00 79 18 02/03/22 00:00 97.7 F 79 18 142/65 02/02/22 21:09 02/02/22 20:00 97.8 F 80 18 107/54 02/02/22 18:00 82 23 141/62 02/02/22 17:00 89 24 122/64 02/02/22 16:00 86 20 123/66 02/02/22 15:30 84 25 H 123/66 02/02/22 14:00 85 22 106/62 02/02/22 13:51 93 Pulse Ox 02/03/22 08:35 97 02/03/22 07:30 95 02/03/22 04:00 98 02/03/22 02:00 02/03/22 00:00 98 02/02/22 21:09 98 02/02/22 20:00 92 L 02/02/22 18:00 96 02/02/22 17:00 96 02/02/22 16:00 95 02/02/22 15:30 95 02/02/22 14:00 95 02/02/22 13:51 Intake and Output 02/02/22 02/03/22 02/03/22 22:59 06:59 14:59 Intake Total 360 Output Total 500 750 Balance -500 -390 Intake: Oral 360 Output: Urine 500 750 Other: Voiding Method External Catheter Bedside Commode Bedside Commode External Catheter Weight 66.678 kg GENERAL EXAM: Alert, pleasant 76-year-old female, on 5 L high flow nasal cannula, fairly comfortable in no apparent distress. HEAD: Normocephalic. EYES: Normal reaction of pupils, equal size. NOSE: Clear with pink turbinates. THROAT: No erythema or exudates. NECK: No masses, no JVD. CHEST: No chest wall deformity. LUNGS: Equal air entry with crackles, scattered rhonchi in the left lung base. CVS: S1 and S2 normal with no audible murmur, regular rhythm. ABDOMEN: No hepatosplenomegaly, normal bowel sounds, no guarding or rigidity. SPINE: No scoliosis or deformity SKIN: No rashes CENTRAL NERVOUS SYSTEM: No focal deficits, tone is normal in all 4 extremities. EXTREMITIES: There is no peripheral edema. No clubbing, no cyanosis. Peripheral pulses are intact. Results - Laboratory Findings CBC and BMP: 02/03/22 08:03 02/03/22 08:03 ABG ABG pH 7.48 (7.35-7.45) H 02/02/22 18:06 ABG pCO2 40 mmHg (35-45) 02/02/22 18:06 ABG pO2 66 mmHg (83-108) L 02/02/22 18:06 ABG O2 Saturation 95.0 % (94-97) 02/02/22 18:06 PT/INR, D-dimer PT 10.6 sec (9.0-12.0) 02/02/22 12:00 INR 1.0 (<1.2) 02/02/22 12:00 D-Dimer 7.87 mg/L FEU (<0.60) H 02/02/22 12:00 Abnormal lab findings: Abnormal Labs 02/02/22 02/02/22 02/02/22 12:00 12:00 12:00 WBC 24.3 H RBC 3.79 L Hgb Hct Neutrophils # 22.9 H Lymphocytes # 0.5 L D-Dimer 7.87 H ABG pH ABG pO2 ABG HCO3 ABG Total CO2 Carbon Dioxide BUN 33 H Glucose 126 H Plasma Lactic Acid Bharathi Calcium 8.1 L Total Protein 6.1 L Albumin 3.1 L Procalcitonin 02/02/22 02/02/22 02/02/22 12:00 12:00 18:06 WBC RBC Hgb Hct Neutrophils # Lymphocytes # D-Dimer ABG pH 7.48 H ABG pO2 66 L ABG HCO3 29 H ABG Total CO2 30 H Carbon Dioxide BUN Glucose Plasma Lactic Acid Bharathi 2.1 H* Calcium Total Protein Albumin Procalcitonin 0.12 H 02/03/22 02/03/22 08:03 08:03 WBC 20.6 H RBC 3.45 L Hgb 10.2 L Hct 32.6 L Neutrophils # 18.8 H Lymphocytes # 0.7 L D-Dimer ABG pH ABG pO2 ABG HCO3 ABG Total CO2 Carbon Dioxide 31 H BUN 29 H Glucose Plasma Lactic Acid Bharathi Calcium 7.8 L Total Protein Albumin Procalcitonin - Diagnostic Findings Chest x-ray: image reviewed CT scan - chest: image reviewed Assessment and Plan Assessment: Acute on chronic hypoxemic respiratory failure secondary to COVID-19 pneumonia. Possible healthcare acquired pneumonia in the left lower lobe. Pro-calcitonin 0.12. Recent admission to outside facility for COVID-19 pneumonia Severe chronic obstructive pulmonary disease, oxygen dependent, FEV1 value of 40% of predicted Chronic and ongoing tobacco dependence of over 50 years Hypertension Hypothyroidism Hyperlipidemia Chronic cor pulmonale Chronic pulmonary fibrosis with scarring mostly at the right apex Plan: The patient was seen and evaluated Chest x-ray, CAT scans and labs reviewed Procalcitonin 0.12 We'll discontinue the vancomycin Continue Zosyn for now Continue Symbicort, albuterol, Decadron Continue Lovenox for DVT prophylaxis Vitamin supplements Educated regarding the importance of complete smoking cessation NicoDerm patch in place We will continue to follow and make further recommendations based on her clinical status I have personally seen and examined the patient, performed the documentation and the assessment and plan as written. Number of minutes spent on the visit: 20.
--- NOTE | 2022-02-03 16:03 | P.PN ---
Subjective Progress Note Date: 02/03/22 (delayed charting seen at 0945) Patient is a 76-year-old female with COPD on home O2 at 3 L, and just of heart failure, hypertension, and dyslipidemia who presented to the ER at the direction of her primary care physician due to hypoxemia. Patient was discharged home from [facility] yesterday after being found positive for COVID-19 and pneumonia. She is to be taking steroids and antibiotics. At home she was saturating 83% on 6 L with some increased work of breathing. She required a nonrebreather secondary to increased work of breathing. Initial laboratory evaluation was remarkable for acute white blood cell count of 24.3, d-dimer 7.87, BUN 33, lactic acid 2.1. Influenza A and B were negative. Chest x-ray showed patchy lower lobe infiltrate. Chest x-ray showed no evidence of pulmonary embolism with left lower lobe patchy consolidation concerning for pneumonia, small left pleural effusion, moderate to severe COPD changes, and few enlarged mediastinal lymph nodes. In the ER she was started on bronchodilators. Arrangements were made for admission. She was started on steroids and bronchdilators. Pulmonary was consulted. Negative lower extremity venous Dopple rs Patient seen and examined at bedside. She reports her breathing is much improved since yesterday. Her appetite was good this morning. Denies any nausea, vomiting, diarrhea. General: nontoxic, no distress, appears at stated age Derm: warm, dry Head: atraumatic, normocephalic, symmetric Eyes: EOMI, no lid lag, anicteric sclera Mouth: no lip lesion, mucus membranes moist Cardiovascular: S1S2 reg, no murmur, positive posterior tibial pulse bilateral, Lungs: Coarse breath sounds bilateral, no rhonchi, no rales , no accessory muscle use Abdominal: soft, nontender to palpation, no guarding, no appreciable organomegaly Ext: no gross muscle atrophy, trace edema, no contractures Neuro: CN II-XI grossly intact, no focal neuro deficits Psych: Alert, oriented, appropriate affect Assessment/Plan: Pneumonia, suspect possible bacterial given how lobar it is Acute on chronic hypoxic respiratory failure Acute exacerbation of COPD, moderate to severe on x-ray COVID-19 infection -procal is low but patient has been on abx. -pulm recs appreciated- conitnue zosyn, stop vanco - await MRSA nasal swab -Bronchodilators -Steroids - vit D and Vit C - intolerant to zinc due to n/v Heart failure, unknown ejection fraction Dyslipidemia Hypertension -Continue with Lasix, enalapril, Lipitor -Follow blood pressures -Patient is not chronically on beta blockers. Falls - PT/OT evaluation Hx of tobacco dependency - just quit after smoking since age 15 - continue nicotine replacement Chronic: GERD Hypothyroidism DVT prophylaxis: Lovenox Discussed with: patient, ED provider Anticipated discharge date: Pending clinical course Anticipated discharge place: retirement versus home with home health A total of 65 minutes was spent on the care of this complex patient more than 50% of the time was spent in counseling and care coordination. Objective - Vital Signs Vital signs: Vital Signs Temp 97.5 F L 02/03/22 08:35 Pulse 83 02/03/22 08:35 Resp 22 02/03/22 08:35 BP 116/56 02/03/22 08:35 Pulse Ox 97 02/03/22 08:35 FiO2 Intake & Output 02/02/22 02/03/22 02/03/22 18:59 06:59 18:59 Intake Total 360 Output Total 500 750 Balance -500 -390 Weight 66.678 kg 66.678 kg Intake: Oral 360 Output: Urine 500 750 Other: Voiding Method Bedside Commode Bedside Commode External Catheter - Labs CBC & Chem 7: 02/03/22 08:03 02/03/22 08:03 Labs: Abnormal Lab Results - Last 24 Hours (Table) 02/02/22 02/02/22 02/03/22 Range/Units 12:00 18:06 08:03 WBC 20.6 H (3.8-10.6) k/uL RBC 3.45 L (3.80-5.40) m/uL Hgb 10.2 L (11.4-16.0) gm/dL Hct 32.6 L (34.0-46.0) % Neutrophils # 18.8 H (1.3-7.7) k/uL Lymphocytes # 0.7 L (1.0-4.8) k/uL ABG pH 7.48 H (7.35-7.45) ABG pO2 66 L (83-108) mmHg ABG HCO3 29 H (21-25) mmol/L ABG Total CO2 30 H (19-24) mmol/L Carbon Dioxide (22-30) mmol/L BUN (7-17) mg/dL Calcium (8.4-10.2) mg/dL Procalcitonin 0.12 H (0.02-0.09) ng/mL 02/03/22 Range/Units 08:03 WBC (3.8-10.6) k/uL RBC (3.80-5.40) m/uL Hgb (11.4-16.0) gm/dL Hct (34.0-46.0) % Neutrophils # (1.3-7.7) k/uL Lymphocytes # (1.0-4.8) k/uL ABG pH (7.35-7.45) ABG pO2 (83-108) mmHg ABG HCO3 (21-25) mmol/L ABG Total CO2 (19-24) mmol/L Carbon Dioxide 31 H (22-30) mmol/L BUN 29 H (7-17) mg/dL Calcium 7.8 L (8.4-10.2) mg/dL Procalcitonin (0.02-0.09) ng/mL
[2022-02-04] MEDS: LEVOTHYROXINE 88 MCG TAB PO SCH (06:06)
[2022-02-04] MEDS: PANTOPRAZOLE 40 MG TABLET PO SCH (06:06)
[2022-02-04 09:22] LABS: HCT 34.9 % (34.0-46.0); HGB 10.8 gm/dL (11.4-16.0); Hypochromasia Moderate; MCH 29.2 pg (25.0-35.0); MCHC 30.9 g/dL (31.0-37.0); MCV 94.6 fL (80.0-100.0); Mean Platelet Volume 8.4; Platelet Count 324 k/uL (150-450); RBC 3.69 m/uL (3.80-5.40); RDW 14.6 % (11.5-15.5); WBC 17.1 k/uL (3.8-10.6)
[2022-02-04] MEDS: SYMBICORT 160-4.5 MCG INHALER INHALATION SCH ×2 (09:28→19:39)
[2022-02-04] MEDS: ALBUTEROL HFA INHALER INHALATION PRN ×4 (09:28→19:39)
[2022-02-04 09:42] LABS: Albumin 3.3 g/dL (3.5-5.0); Calcium 8.3 mg/dL (8.4-10.2); Magnesium 2.1 mg/dL (1.6-2.3); Phosphorus 3.6 mg/dL (2.5-4.5); Potassium 4.1 mmol/L (3.5-5.1); Total Bilirubin 0.6 mg/dL (0.2-1.3); Total Protein 6.4 g/dL (6.3-8.2)
[2022-02-04] MEDS: PIPERACILLIN-TAZOBACTAM 3.375 GM in SODIUM CHLORIDE 0.9% 100 ML IVPB SCH ×2 (09:51→16:14)
[2022-02-04] MEDS: NICOTINE 21MG/24HR PATCH TRANSDERM SCH (09:53)
[2022-02-04] MEDS: ENOXAPARIN 40 MG/0.4 ML SYRINGE SQ SCH (09:53)
[2022-02-04] MEDS: guaiFENesin 600 MG TABLET.ER PO SCH ×2 (09:54→20:56)
[2022-02-04] MEDS: ASCORBIC ACID 500 MG TAB PO SCH (09:54)
[2022-02-04] MEDS: CHOLECALCIFEROL 25 MCG (1000 IU) TABLET PO SCH (09:54)
[2022-02-04] MEDS: DEXAMETHASONE SOD PHOSPHATE 10 MG/ML 1 ML VIAL IVP SCH (09:55)
[2022-02-04] MEDS: FUROSEMIDE 20 MG TAB PO SCH ×2 (09:55→16:14)
[2022-02-04] MEDS: lisinopriL 20 MG TAB PO SCH (09:55)
[2022-02-04] MEDS: ALPRAZolam 0.25 MG TAB PO PRN (09:55)
[2022-02-04] MEDS: ATORVASTATIN 20 MG TAB PO SCH (09:55)
--- NOTE | 2022-02-04 13:01 | P.PN ---
Subjective Progress Note Date: 02/04/22 This is a pleasant 76-year-old female patient with a known history of hypertension, hypothyroidism, hyperlipidemia, chronic pulmonary fibrosis with mostly scarring of the right apex, chronic and ongoing tobacco dependence, severe oxygen dependent chronic obstructive pulmonary disease with an FEV1 value of 40% of predicted. She was recently admitted to [facility] with COVID-19 pneumonia. She was discharged on 01/01/2022 and then brought here to the emergency room on 01/02/2022 with ongoing issues with shortness of breath, cough and congestion. The patient is vaccinated but not boosted. Chest x-ray does reveal a left basilar patchy airspace disease with a small left effusion. Chronic interstitial changes noted. CT angiogram revealed no evidence of pulmonary embolism. There is again noted left lower lobe patchy consolidation. Small left pleural effusion. Dopplers of the bilateral lower extremity are negative for DVT. White count 20.6. Hemoglobin 10.2. Lymphocytes 0.7. Sodium 142. Potassium 4.1. BUN 29. Creatinine 0.89. Pro calcitonin 0.12. BNP 2120. Troponin negative. Influenza screen negative. Arterial blood gases on 45% FiO2 revealed a pO2 of 66, pCO2 of 40, pH 7.48. She is seen today in consultation on the regular medical floor. She is currently awake and alert in no acute distress. Maintaining O2 saturations in the 90s on 5 L high flow nasal cannula. She's been afebrile. Hemodynamically stable. She's been initiated on Albuterol HFA, Symbicort, Decadron. Lovenox for DVT prophylaxis. NicoDerm patch is in place. Antibiotics in the form of vancomycin and Zosyn. The patient is seen today 02/04/2022 in follow-up on the selective care unit. She is currently sitting up in bed. Awake and alert in no acute distress. Maintaining good O2 saturations in the 90s on 3 L/m per nasal cannula. Blood cultures reveal no growth. White count 17.1. Hemoglobin 10.8. Sodium 142. Potassium 4.1 BUN 27. Creatinine 0.95. Glucose 120. She is continued on vitamin supplements, Decadron, Lovenox. She remains on Symbicort and albuterol HFA. Antibiotics in the form of Zosyn. NicoDerm patch in place. Objective - Vital Signs Vital signs: Vital Signs Temp 97.4 F L 11/12/22 07:58 Pulse 81 02/04/22 07:58 Resp 22 02/04/22 07:58 BP 140/66 02/04/22 07:58 Pulse Ox 98 02/04/22 09:30 FiO2 Intake & Output 02/03/22 02/04/22 02/04/22 18:59 06:59 18:59 Intake Total 450 180 Output Total 750 500 Balance -300 -500 180 Intake: Oral 450 180 Output: Urine 750 500 Other: Voiding Method Bedside Commode Bedside Commode Bedside Commode # Voids 2 1 # Bowel Movements 1 - Exam GENERAL EXAM: Alert, 76-year-old female, on 3 L nasal cannula, fairly comfortable in no apparent distress. HEAD: Normocephalic. EYES: Normal reaction of pupils, equal size. NOSE: Clear with pink turbinates. THROAT: No erythema or exudates. NECK: No masses, no JVD. CHEST: No chest wall deformity. LUNGS: Equal air entry with crackles, scattered rhonchi in the left lung base. CVS: S1 and S2 normal with no audible murmur, regular rhythm. ABDOMEN: No hepatosplenomegaly, normal bowel sounds, no guarding or rigidity. SPINE: No scoliosis or deformity SKIN: No rashes CENTRAL NERVOUS SYSTEM: No focal deficits, tone is normal in all 4 extremities. EXTREMITIES: There is no peripheral edema. No clubbing, no cyanosis. Peripheral pulses are intact. - Labs CBC & Chem 7: 02/04/22 08:42 02/04/22 08:42 Labs: Abnormal Lab Results - Last 24 Hours (Table) 02/04/22 02/04/22 Range/Units 08:42 08:42 WBC 17.1 H (3.8-10.6) k/uL RBC 3.69 L (3.80-5.40) m/uL Hgb 10.8 L (11.4-16.0) gm/dL MCHC 30.9 L (31.0-37.0) g/dL Carbon Dioxide 34 H (22-30) mmol/L BUN 27 H (7-17) mg/dL Glucose 120 H (74-99) mg/dL Calcium 8.3 L (8.4-10.2) mg/dL Albumin 3.3 L (3.5-5.0) g/dL Microbiology - Last 24 Hours (Table) 02/02/22 15:00 Blood Culture - Preliminary Blood No Growth after 24 hours 02/02/22 14:41 Blood Culture - Preliminary Blood No Growth after 24 hours Assessment and Plan Assessment: Acute on chronic hypoxemic respiratory failure secondary to COVID-19 pneumonia. Possible healthcare acquired pneumonia in the left lower lobe. Pro-calcitonin 0.12. Recent admission to outside facility for COVID-19 pneumonia Severe chronic obstructive pulmonary disease, oxygen dependent, FEV1 value of 40% of predicted Chronic and ongoing tobacco dependence of over 50 years Hypertension Hypothyroidism Hyperlipidemia Chronic cor pulmonale Chronic pulmonary fibrosis with scarring mostly at the right apex Plan: The patient was seen and evaluated Medications and labs reviewed Continue Zosyn Continue Symbicort, albuterol, Decadron Continue Lovenox, vitamin supplements Again educated regarding the importance of complete smoking cessation NicoDerm patch in place Continue to titrate down the FiO2 as tolerated We will continue to follow I have personally seen and examined the patient, performed the documentation and the assessment and plan as written. Number of minutes spent on the visit: 10.
--- NOTE | 2022-02-04 13:25 | P.PN ---
Subjective Progress Note Date: 02/04/22 (delayed charting seen at 0835) Patient is a 76-year-old female with COPD on home O2 at 3 L, and just of heart failure, hypertension, and dyslipidemia who presented to the ER at the direction of her primary care physician due to hypoxemia. Patient was discharged home from [facility] yesterday after being found positive for COVID-19 and pneumonia. She is to be taking steroids and antibiotics. At home she was saturating 83% on 6 L with some increased work of breathing. She required a nonrebreather secondary to increased work of breathing. Initial laboratory evaluation was remarkable for acute white blood cell count of 24.3, d-dimer 7.87, BUN 33, lactic acid 2.1. Influenza A and B were negative. Chest x-ray showed patchy lower lobe infiltrate. Chest x-ray showed no evidence of pulmonary embolism with left lower lobe patchy consolidation concerning for pneumonia, small left pleural effusion, moderate to severe COPD changes, and few enlarged mediastinal lymph nodes. In the ER she was started on bronchodilators. Arrangements were made for admission. She was started on steroids and bronchdilators. Pulmonary was consulted. Negative lower extremity venous Dopple rs. Her Abx were continued with zosyn and vanco was stopped. Patient seen and examined at bedside. Feeling anxious this morning as coffee taken await, no nausea, no vomiting. General: nontoxic, no distress, appears at stated age Derm: warm, dry Head: atraumatic, normocephalic, symmetric Eyes: EOMI, no lid lag, anicteric sclera Mouth: no lip lesion, mucus membranes dry Cardiovascular: S1S2 reg, no murmur, positive posterior tibial pulse bilateral, Lungs: Coarse breath sounds bilateral, no rhonchi, no rales , no accessory muscle use Abdominal: soft, nontender to palpation, no guarding, no appreciable organomegaly Ext: no gross muscle atrophy, trace edema, no contractures Neuro: CN II-XI grossly intact, no focal neuro deficits Psych: Alert, oriented, appropriate affect Assessment/Plan: Complicated Pneumonia, suspect possible bacterial given how lobar it is, possible gram negative Acute on chronic hypoxic respiratory failure Acute exacerbation of COPD, moderate to severe on x-ray COVID-19 infection -procal is low but patient has been on abx. -pulm recs appreciated- conitnue zosyn - await MRSA nasal swab - never collected -Bronchodilators -Steroids - vit D and Vit C - intolerant to zinc due to n/v - consult palliative care Chronic Heart failure, unknown ejection fraction Dyslipidemia Hypertension -Continue with Lasix, enalapril, Lipitor -Follow blood pressures -Patient is not chronically on beta blockers. Falls - PT/OT evaluation Hx of tobacco dependency - just quit after smoking since age 15 - continue nicotine replacement Chronic: GERD Hypothyroidism DVT prophylaxis: Lovenox Discussed with: patient, ED provider Anticipated discharge date: Pending clinical course Anticipated discharge place: [facility] versus home with home health A total of 35 minutes was spent on the care of this complex patient more than 50% of the time was spent in counseling and care coordination. Active Medications Generic Name Dose Route Start Last Admin Trade Name Freq PRN Reason Stop Dose Admin Albuterol Sulfate 2 puff 02/02/22 15:26 02/04/22 12:47 Albuterol Hfa Inhaler INHALATION 2 puff RT-QID PRN Administration Shortness Of Breath Or Wheezing Alprazolam 0.25 mg 02/02/22 16:30 02/04/22 09:55 Alprazolam 0.25 Mg Tab PO 0.25 mg HS PRN Administration Anxiety Ascorbic Acid 1,000 mg 02/03/22 09:00 02/04/22 09:54 Ascorbic Acid 500 Mg Tab PO 1,000 mg DAILY CORAZON Administration Atorvastatin Calcium 20 mg 02/03/22 09:00 02/04/22 09:55 Atorvastatin 20 Mg Tab PO 20 mg DAILY CORAZON Administration Budesonide/Formoterol Fumarate 2 puff 02/02/22 20:00 02/04/22 09:28 Symbicort 160-4.5 Mcg Inhaler INHALATION 2 puff RT-BID CORAZON Administration Cholecalciferol 100 mcg 02/03/22 09:00 02/04/22 09:54 Cholecalciferol 25 Mcg (1000 Iu) Tablet PO 100 mcg DAILY CORAZON Administration Dexamethasone Sodium Phosphate 6 mg 02/03/22 09:00 02/04/22 09:55 Dexamethasone Sod Phosphate 10 Mg/Ml 1 Ml Vial IVP 6 mg DAILY CORAZON Administration Enoxaparin Sodium 40 mg 02/03/22 09:00 02/04/22 09:53 Enoxaparin 40 Mg/0.4 Ml Syringe SQ 40 mg Q24HR CORAZON Administration Furosemide 20 mg 02/02/22 17:00 02/04/22 09:55 Furosemide 20 Mg Tab PO 20 mg BID@0900,1600 CORAZON Administration Guaifenesin 1,200 mg 02/02/22 21:00 02/04/22 09:54 Guaifenesin 600 Mg Tablet.Er PO 1,200 mg BID CORAZON Administration Piperacillin Sod/Tazobactam 100 mls @ 25 mls/hr 02/02/22 16:00 02/04/22 09:51 Sod 3.375 gm/ Sodium Chloride IVPB 02/07/22 16:01 25 mls/hr Q8HR CORAZON Administration Protocol Ibuprofen 400 mg 02/02/22 17:37 02/02/22 17:48 Ibuprofen 400 Mg Tab PO 400 mg Q6HR PRN Administration Pain Levothyroxine Sodium 88 mcg 02/03/22 06:30 02/04/22 06:06 Levothyroxine 88 Mcg Tab PO 88 mcg DAILY@0630 CORAZON Administration Lisinopril 20 mg 02/03/22 09:00 02/04/22 09:55 Lisinopril 20 Mg Tab PO 20 mg DAILY CORAZON Administration Melatonin 5 mg 02/02/22 16:30 Melatonin 5 Mg Tablet PO HS PRN Insomnia Miscellaneous Information 1 each 02/02/22 14:51 Pneumonia Protocol Utilized 1 Each Misc PO ONCE PRN Per Protocol Naloxone HCl 0.2 mg 02/02/22 15:20 Naloxone 0.4 Mg/Ml 1 Ml Vial IV Q2M PRN Opioid Reversal Nicotine 1 patch 02/03/22 09:00 02/04/22 09:53 Nicotine 21mg/24hr Patch TRANSDERM 1 patch DAILY CORAZON Administration Pantoprazole Sodium 40 mg 02/03/22 07:30 02/04/22 06:06 Pantoprazole 40 Mg Tablet PO 40 mg [id number] CORAZON Administration Objective - Vital Signs Vital signs: Vital Signs Temp 97.4 F L 02/04/22 12:00 Pulse 76 02/04/22 12:00 Resp 20 02/04/22 12:00 BP 134/62 02/04/22 12:00 Pulse Ox 97 02/04/22 12:00 FiO2 Intake & Output 02/03/22 02/04/22 02/04/22 18:59 06:59 18:59 Intake Total 450 180 Output Total 750 500 Balance -300 -500 180 Intake: Oral 450 180 Output: Urine 750 500 Other: Voiding Method Bedside Commode Bedside Commode Bedside Commode # Voids 2 1 # Bowel Movements 1 - Labs CBC & Chem 7: 02/04/22 08:42 02/04/22 08:42 Labs: Abnormal Lab Results - Last 24 Hours (Table) 02/04/22 02/04/22 Range/Units 08:42 08:42 WBC 17.1 H (3.8-10.6) k/uL RBC 3.69 L (3.80-5.40) m/uL Hgb 10.8 L (11.4-16.0) gm/dL MCHC 30.9 L (31.0-37.0) g/dL Carbon Dioxide 34 H (22-30) mmol/L BUN 27 H (7-17) mg/dL Glucose 120 H (74-99) mg/dL Calcium 8.3 L (8.4-10.2) mg/dL Albumin 3.3 L (3.5-5.0) g/dL Microbiology - Last 24 Hours (Table) 02/02/22 15:00 Blood Culture - Preliminary Blood No Growth after 24 hours 02/02/22 14:41 Blood Culture - Preliminary Blood No Growth after 24 hours
[2022-02-05] MEDS: PIPERACILLIN-TAZOBACTAM 3.375 GM in SODIUM CHLORIDE 0.9% 100 ML IVPB SCH ×4 (00:20→23:07)
[2022-02-05] MEDS ORDERED: VANCOMYCIN TROUGH DUE 1 EACH MISC MISCELLANE ONE (05:00)
[2022-02-05] MEDS: ALBUTEROL HFA INHALER INHALATION PRN ×4 (05:30→19:48)
[2022-02-05] MEDS: PANTOPRAZOLE 40 MG TABLET PO SCH (06:38)
[2022-02-05] MEDS: LEVOTHYROXINE 88 MCG TAB PO SCH (06:38)
--- NOTE | 2022-02-05 07:46 | XR ---
EXAMINATION TYPE: XR chest 1V portable DATE OF EXAM: 02/05/2022 HISTORY: Shortness of breath. COMPARISON: 02/03/2022 TECHNIQUE: Single view of the chest is submitted. FINDINGS: Demonstrated are scattered senescent parenchymal change. 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 Persistent mixed interstitial and alveolar infiltrate left mid and left lower lung zones. Small effus ion noted on the left as well. The heart is stable. Hilar and mediastinal structures are within normal limits. Degenerative changes are seen of the dorsal spine. IMPRESSION: 1. Stable left lower lobe pneumonia.
[2022-02-05] MEDS: NICOTINE 21MG/24HR PATCH TRANSDERM SCH (08:08)
[2022-02-05] MEDS: guaiFENesin 600 MG TABLET.ER PO SCH ×2 (08:09→21:11)
[2022-02-05] MEDS: ASCORBIC ACID 500 MG TAB PO SCH (08:09)
[2022-02-05] MEDS: ATORVASTATIN 20 MG TAB PO SCH (08:09)
[2022-02-05] MEDS: CHOLECALCIFEROL 25 MCG (1000 IU) TABLET PO SCH (08:09)
[2022-02-05] MEDS: lisinopriL 20 MG TAB PO SCH (08:09)
[2022-02-05] MEDS: ENOXAPARIN 40 MG/0.4 ML SYRINGE SQ SCH (08:09)
[2022-02-05] MEDS: ALPRAZolam 0.25 MG TAB PO PRN (08:09)
[2022-02-05] MEDS: FUROSEMIDE 20 MG TAB PO SCH ×2 (08:09→16:45)
[2022-02-05] MEDS: DEXAMETHASONE SOD PHOSPHATE 10 MG/ML 1 ML VIAL IVP SCH (08:10)
[2022-02-05] MEDS: SYMBICORT 160-4.5 MCG INHALER INHALATION SCH ×2 (08:37→19:48)
[2022-02-05 09:13] LABS: HCT 31.9 % (34.0-46.0); HGB 10.1 gm/dL (11.4-16.0); Hypochromasia Moderate; MCH 29.6 pg (25.0-35.0); MCHC 31.6 g/dL (31.0-37.0); MCV 93.5 fL (80.0-100.0); Mean Platelet Volume 8.5; Platelet Count 321 k/uL (150-450); RBC 3.42 m/uL (3.80-5.40); RDW 14.7 % (11.5-15.5); WBC 10.9 k/uL (3.8-10.6)
[2022-02-05 09:18] LABS: Calcium 8.1 mg/dL (8.4-10.2); Potassium 3.4 mmol/L (3.5-5.1)
[2022-02-05] MEDS ORDERED: POTASSIUM CHLORIDE ER 20 MEQ TAB.ER PO STA (09:50)
--- NOTE | 2022-02-05 11:23 | P.PN ---
Subjective Progress Note Date: 02/05/22 Principal diagnosis: Shortness of breath Hospital Course: Patient is a 76-year-old female with COPD on home O2 at 3 L, chronic heart failure, hypertension, and dyslipidemia who presented to the ER at the direction of her primary care physician due to hypoxemia. Patient was discharged home from [facility] yesterday after being found positive for COVID-19 and pneumonia. She is to be taking steroids and antibiotics. At home she was saturating 83% on 6 L with some increased work of breathing. She required a nonrebreather secondary to increased work of breathing. Initial laboratory evaluation was remarkable for acute white blood cell count of 24.3, d-dimer 7.87, BUN 33, lactic acid 2.1. Influenza A and B were negative. Chest x-ray showed patchy lower lobe infiltrate. Chest CTA showed no evidence of pulmonary embolism with left lower lobe patchy consolidation concerning for pneumonia, small left pleural effusion, moderate to severe COPD changes, and few enlarged mediastinal lymph nodes. Lower extremity venous Dopplers were negative for DVT. Patient was started on bronchodilators and steroids. Pulmonary was consulted. Negative lower extremity venous Dopplers. Her Abx were continued with zosyn and vanco was stopped. Pro-calcitonin low, pulmonary recommending continuing Zosyn. Subjective: Patient seen and examined at bedside. No acute events overnight. She is currently at her baseline O2 requirements at rest. However, she still very dyspneic with ambulation. She denies any chest pain, abdominal pain, nausea, v omiting, diarrhea, constipation, or urinary complaints. Pertinent positives and negatives as discussed above, a complete review of systems was performed and all other systems are negative. Vitals Signs Reviewed. General: nontoxic, no distress, appears at stated age Derm: warm, dry Head: atraumatic, normocephalic, symmetric Eyes: EOMI, no lid lag, anicteric sclera Mouth: no lip lesion, mucus membranes moist Cardiovascular: S1S2 reg, no murmur Lungs: Bilateral rales at the bases, no accessory muscle use, 3 L nasal cannula Abdominal: soft, nontender to palpation, no guarding, no appreciable organomegaly Ext: no gross muscle atrophy, trace peripheral edema, no contractures Neuro: CN II-XI grossly intact, no focal neuro deficits Psych: Alert, oriented, appropriate affect Assessment and Plan: Complicated Pneumonia, suspect possible bacterial Acute on chronic hypoxic respiratory failure Acute exacerbation of COPD, moderate to severe Symptomatic COVID-19 infection -procal is low -pulm recs appreciated- conitnue zosyn -await MRSA nasal swab -collected and pending -Sputum culture - few PMNs, rare budding yeast, rare GPC -Blood cultures no growth to date -Bronchodilators -Steroids - vit D and Vit C - intolerant to zinc due to n/v - consult palliative care Chronic Heart failure, unknown ejection fraction Dyslipidemia Hypertension -Continue with Lasix, enalapril, Lipitor -Follow blood pressures -Patient is not chronically on beta blockers. Falls - PT/OT evaluation Nicotine dependence - just quit after smoking since age 15 - continue nicotine replacement Chronic: GERD Hypothyroidism DVT ppx: Lovenox Code status: No code Anticipated discharge place: Subacute rehab per physical therapy Anticipated discharge time: Likely Sunday Objective - Vital Signs Vital signs: Vital Signs Temp 97.5 F L 02/05/22 08:00 Pulse 84 02/05/22 08:00 Resp 26 H 02/05/22 08:00 BP 130/82 02/05/22 08:00 Pulse Ox 94 L 02/05/22 08:00 FiO2 Intake & Output 02/04/22 02/05/22 02/05/22 18:59 06:59 18:59 Intake Total 540 240 Output Total 600 300 400 Balance -60 -300 -160 Intake: Oral 540 240 Output: Urine 600 300 400 Other: Voiding Method Bedside Commode Bedside Commode Bedside Commode Incontinent # Voids 1 1 - Labs CBC & Chem 7: 02/05/22 07:58 02/05/22 07:58 Labs: Abnormal Lab Results - Last 24 Hours (Table) 02/05/22 02/05/22 Range/Units 07:58 07:58 WBC 10.9 H (3.8-10.6) k/uL RBC 3.42 L (3.80-5.40) m/uL Hgb 10.1 L (11.4-16.0) gm/dL Hct 31.9 L (34.0-46.0) % Potassium 3.4 L (3.5-5.1) mmol/L Carbon Dioxide 36 H (22-30) mmol/L BUN 22 H (7-17) mg/dL Glucose 101 H (74-99) mg/dL Calcium 8.1 L (8.4-10.2) mg/dL Microbiology - Last 24 Hours (Table) 02/04/22 10:30 Gram Stain - Preliminary Sputum Sputum Culture - Preliminary 02/02/22 15:00 Blood Culture - Preliminary Blood No Growth after 48 hours 02/02/22 14:41 Blood Culture - Preliminary Blood No Growth after 48 hours
[2022-02-05] MEDS ORDERED: bisacodyL 5 MG TABLET.DR PO PRN (11:29)
--- NOTE | 2022-02-05 12:19 | P.PN ---
Subjective Progress Note Date: 02/05/22 Principal diagnosis: Acute on chronic hypoxic respiratory failure secondary to COVID-19 pneumonia possible healthcare acquired pneumonia involving left lower lobe This is a pleasant 76-year-old female patient with a known history of hypertension, hypothyroidism, hyperlipidemia, chronic pulmonary fibrosis with mostly scarring of the right apex, chronic and ongoing tobacco dependence, severe oxygen dependent chronic obstructive pulmonary disease with an FEV1 value of 40% of predicted. She was recently admitted to [facility] with COVID-19 pneumonia. She was discharged on 01/01/2022 and then brought here to the emergency room on 01/02/2022 with ongoing issues with shortness of breath, cough and congestion. The patient is vaccinated but not boosted. Chest x-ray does reveal a left basilar patchy airspace disease with a small left effusion. Chronic interstitial changes noted. CT angiogram revealed no evidence of pulmonary embolism. There is again noted left lower lobe patchy consolidation. Small left pleural effusion. Dopplers of the bilateral lower extremity are negative for DVT. White count 20.6. Hemoglobin 10.2. Lymphocytes 0.7. Sodium 142. Potassium 4.1. BUN 29. Creatinine 0.89. Pro calcitonin 0.12. BNP 2120. Troponin negative. Influenza screen negative. Arterial blood gases on 45% FiO2 revealed a pO2 of 66, pCO2 of 40, pH 7.48. She is seen today in consultation on the regular medical floor. She is currently awake and alert in no acute distress. Maintaining O2 saturations in the 90s on 5 L high flow nasal cannula. She's been afebrile. Hemodynamically stable. She's been initiated on Albuterol HFA, Symbicort, Decadron. Lovenox for DVT prophylaxis. NicoDerm patch is in place. Antibiotics in the form of vancomycin and Zosyn. The patient is seen today 02/04/2022 in follow-up on the selective care unit. She is currently sitting up in bed. Awake and alert in no acute distress. Maintaining good O2 saturations in the 90s on 3 L/m per nasal cannula. Blood cultures reveal no growth. White count 17.1. Hemoglobin 10.8. Sodium 142. Potassium 4.1 BUN 27. Creatinine 0.95. Glucose 120. She is continued on [place] supplements, Decadron, Lovenox. She remains on Symbicort and albuterol HFA. Antibiotics in the form of Zosyn. NicoDerm patch in place. Reevaluated today on 02/05/22, patient is feeling better today, breathing easier, chest x-ray is showing definite improvement in her left lower lobe infiltrate. Patient is on 3 L nasal cannula, O2 sats is 94-96%. Pro calcitonin level was relatively low at 0.12, WBC count is 10.9 hemoglobin is 10.1. Basic metabolic profile is normal renal profile is normal bicarb level is 36. Objective - Vital Signs Vital signs: Vital Signs Temp 97.5 F L 02/05/22 08:00 Pulse 84 02/05/22 08:00 Resp 26 H 02/05/22 08:00 BP 130/82 02/05/22 08:00 Pulse Ox 94 L 02/05/22 08:00 FiO2 Intake & Output 02/04/22 02/05/22 02/05/22 18:59 06:59 18:59 Intake Total 540 240 Output Total 600 300 400 Balance -60 -300 -160 Intake: Oral 540 240 Output: Urine 600 300 400 Other: Voiding Method Bedside Commode Bedside Commode Bedside Commode Incontinent # Voids 1 1 - Exam Physical Exam: Revealed 76-year-old female in no distress Head: Atraumatic normocephalic. HEENT:[Neck is supple.] [No neck masses.] [No thyromegaly.] [No JVD.] Chest: [Fine crackles at the left base, no rhonchi no wheezes. Cardiac Exam: [Normal S1 and S2, no S3 gallop, no murmur.] Abdomen: [Soft, nontender, no megaly, no rebound, no guarding, normal bowel sounds.] Extremities: [No clubbing, no edema, no cyanosis.] Neurological Exam: [No focal neurologic deficit.] Alert oriented 3. Psychiatric: Normal mood affect and normal mental status examination. Skin: No rashes. - Labs CBC & Chem 7: 02/05/22 07:58 02/05/22 07:58 Labs: Abnormal Lab Results - Last 24 Hours (Table) 02/05/22 02/05/22 Range/Units 07:58 07:58 WBC 10.9 H (3.8-10.6) k/uL RBC 3.42 L (3.80-5.40) m/uL Hgb 10.1 L (11.4-16.0) gm/dL Hct 31.9 L (34.0-46.0) % Potassium 3.4 L (3.5-5.1) mmol/L Carbon Dioxide 36 H (22-30) mmol/L BUN 22 H (7-17) mg/dL Glucose 101 H (74-99) mg/dL Calcium 8.1 L (8.4-10.2) mg/dL Microbiology - Last 24 Hours (Table) 02/04/22 10:30 Gram Stain - Preliminary Sputum Sputum Culture - Preliminary 02/02/22 15:00 Blood Culture - Preliminary Blood No Growth after 48 hours 02/02/22 14:41 Blood Culture - Preliminary Blood No Growth after 48 hours Assessment and Plan Assessment: Acute on chronic hypoxemic respiratory failure secondary to COVID-19 pneumonia. Possible healthcare acquired pneumonia in the left lower lobe. Pro-calcitonin 0.12. Recent admission to outside facility for COVID-19 pneumonia Severe chronic obstructive pulmonary disease, oxygen dependent, FEV1 value of 40% of predicted Chronic and ongoing tobacco dependence of over 50 years Hypertension Hypothyroidism Hyperlipidemia Chronic cor pulmonale Chronic pulmonary fibrosis with scarring mostly at the right apex Recommendation: Continue present treatment plan Continue antibiotics Continue bronchodilators Continue NicoDerm Continue oxygen and titrate as tolerated Consider discharge planning in the next 24 hours Outpatient follow-up with me in one week for 2 weeks post discharge. Time with Patient: Less than 30
[2022-02-05] MEDS: polyethylene glycoL 3350 17 GM POWD.PACK PO SCH (12:48)
[2022-02-06] MEDS: LEVOTHYROXINE 88 MCG TAB PO SCH (06:27)
[2022-02-06] MEDS: PANTOPRAZOLE 40 MG TABLET PO SCH (06:28)
[2022-02-06] MEDS: SYMBICORT 160-4.5 MCG INHALER INHALATION SCH (07:33)
[2022-02-06] MEDS: ALBUTEROL HFA INHALER INHALATION PRN ×2 (07:33→11:10)
[2022-02-06 08:13] LABS: Calcium 8.4 mg/dL (8.4-10.2); Magnesium 2.2 mg/dL (1.6-2.3); Potassium 3.8 mmol/L (3.5-5.1)
[2022-02-06] MEDS: polyethylene glycoL 3350 17 GM POWD.PACK PO SCH (08:15)
[2022-02-06] MEDS: NICOTINE 21MG/24HR PATCH TRANSDERM SCH (08:15)
[2022-02-06] MEDS: DEXAMETHASONE SOD PHOSPHATE 10 MG/ML 1 ML VIAL IVP SCH (08:16)
[2022-02-06] MEDS: lisinopriL 20 MG TAB PO SCH (08:16)
[2022-02-06] MEDS: CHOLECALCIFEROL 25 MCG (1000 IU) TABLET PO SCH (08:16)
[2022-02-06] MEDS: ATORVASTATIN 20 MG TAB PO SCH (08:16)
[2022-02-06] MEDS: guaiFENesin 600 MG TABLET.ER PO SCH ×2 (08:16→20:56)
[2022-02-06] MEDS: ASCORBIC ACID 500 MG TAB PO SCH (08:16)
[2022-02-06] MEDS: FUROSEMIDE 20 MG TAB PO SCH ×2 (08:16→16:55)
[2022-02-06] MEDS: PIPERACILLIN-TAZOBACTAM 3.375 GM in SODIUM CHLORIDE 0.9% 100 ML IVPB SCH ×3 (08:17→23:11)
[2022-02-06] MEDS: ENOXAPARIN 40 MG/0.4 ML SYRINGE SQ SCH (08:17)
[2022-02-06] MEDS: ALPRAZolam 0.25 MG TAB PO PRN (08:37)
--- NOTE | 2022-02-06 16:15 | P.PN ---
Subjective Progress Note Date: 02/06/22 This is a pleasant 76-year-old female patient with a known history of hypertension, hypothyroidism, hyperlipidemia, chronic pulmonary fibrosis with mostly scarring of the right apex, chronic and ongoing tobacco dependence, severe oxygen dependent chronic obstructive pulmonary disease with an FEV1 value of 40% of predicted. She was recently admitted to [facility] with COVID-19 pneumonia. She was discharged on 01/01/2022 and then brought here to the emergency room on 01/02/2022 with ongoing issues with shortness of breath, cough and congestion. The patient is vaccinated but not boosted. Chest x-ray does reveal a left basilar patchy airspace disease with a small left effusion. Chronic interstitial changes noted. CT angiogram revealed no evidence of pulmonary embolism. There is again noted left lower lobe patchy consolidation. Small left pleural effusion. Dopplers of the bilateral lower extremity are negative for DVT. White count 20.6. Hemoglobin 10.2. Lymphocytes 0.7. Sodium 142. Potassium 4.1. BUN 29. Creatinine 0.89. Pro calcitonin 0.12. BNP 2120. Troponin negative. Influenza screen negative. Arterial blood gases on 45% FiO2 revealed a pO2 of 66, pCO2 of 40, pH 7.48. She is seen today in consultation on the regular medical floor. She is currently awake and alert in no acute distress. Maintaining O2 saturations in the 90s on 5 L high flow nasal cannula. She's been afebrile. Hemodynamically stable. She's been initiated on Albuterol HFA, Symbicort, Decadron. Lovenox for DVT prophylaxis. NicoDerm patch is in place. Antibiotics in the form of vancomycin and Zosyn. The patient is seen today 02/04/2022 in follow-up on the selective care unit. She is currently sitting up in bed. Awake and alert in no acute distress. Maintaining good O2 saturations in the 90s on 3 L/m per nasal cannula. Blood cultures reveal no growth. White count 17.1. Hemoglobin 10.8. Sodium 142. Potassium 4.1 BUN 27. Creatinine 0.95. Glucose 120. She is continued on vitamin supplements, Decadron, Lovenox. She remains on Symbicort and albuterol HFA. Antibiotics in the form of Zosyn. NicoDerm patch in place. The patient is seen today 02/06/2022 in follow-up on the selective care unit. She is currently resting comfortably in bed. Awake and alert in no acute distress. Maintaining O2 saturations in the 90s on 3 L/m per nasal cannula. She's been afebrile. Hemodynamically stable. Sputum positive for Nadia. Blood cultures reveal no growth. Sodium 141. Potassium 3.8. BUN 22. Creatinine 1.06. She is continued on Decadron, Lovenox, vitamin supplements. Continue on Symbicort and albuterol. Antibiotics in the form of Zosyn. Objective - Vital Signs Vital signs: Vital Signs Temp 97.0 F L 02/06/22 11:34 Pulse 73 02/06/22 14:17 Resp 21 02/06/22 14:17 BP 109/74 02/06/22 11:34 Pulse Ox 96 02/06/22 11:34 FiO2 Intake & Output 02/05/22 02/06/22 02/06/22 18:59 06:59 18:59 Intake Total 480 240 476 Output Total 1400 550 Balance -920 -310 476 Intake: Oral 480 240 476 Output: Urine 1400 550 Other: Voiding Method Bedside Commode Bedside Commode Bedside Commode # Voids 1 1 1 # Bowel Movements 1 1 - Exam GENERAL EXAM: Alert, 76-year-old female, on 3 L nasal cannula, fairly comfortable in no apparent distress. HEAD: Normocephalic. EYES: Normal reaction of pupils, equal size. NOSE: Clear with pink turbinates. THROAT: No erythema or exudates. NECK: No masses, no JVD. CHEST: No chest wall deformity. LUNGS: Equal air entry with crackles, scattered rhonchi in the left lung base. CVS: S1 and S2 normal with no audible murmur, regular rhythm. ABDOMEN: No hepatosplenomegaly, normal bowel sounds, no guarding or rigidity. SPINE: No scoliosis or deformity SKIN: No rashes CENTRAL NERVOUS SYSTEM: No focal deficits, tone is normal in all 4 extremities. EXTREMITIES: There is no peripheral edema. No clubbing, no cyanosis. Peripheral pulses are intact. - Labs CBC & Chem 7: 02/05/22 07:58 02/06/22 07:16 Labs: Abnormal Lab Results - Last 24 Hours (Table) 02/06/22 Range/Units 07:16 Carbon Dioxide 39 H (22-30) mmol/L BUN 22 H (7-17) mg/dL Creatinine 1.06 H (0.52-1.04) mg/dL Microbiology - Last 24 Hours (Table) 02/04/22 10:30 Gram Stain - Final Sputum Sputum Culture - Final Nadia albicans 02/02/22 14:41 Blood Culture - Preliminary Blood No Growth after 72 hours 02/02/22 15:00 Blood Culture - Preliminary Blood No Growth after 72 hours 02/05/22 08:20 Nasal Screen MRSA/MSSA - Preliminary Nasal Swab Assessment and Plan Assessment: Acute on chronic hypoxemic respiratory failure secondary to COVID-19 pneumonia. Possible healthcare acquired pneumonia in the left lower lobe. Pro-calcitonin 0.12. Recent admission to outside facility for COVID-19 pneumonia Severe chronic obstructive pulmonary disease, oxygen dependent, FEV1 value of 40% of predicted Chronic and ongoing tobacco dependence of over 50 years Hypertension Hypothyroidism Hyperlipidemia Chronic cor pulmonale Chronic pulmonary fibrosis with scarring mostly at the right apex Plan: The patient was seen and evaluated Medications and labs reviewed Follow-up chest x-ray stable Continue Zosyn Continue Symbicort, albuterol Continue Lovenox, Decadron, vitamin supplements Again educated regarding the importance of complete smoking cessation NicoDerm patch in place Continue to titrate down the FiO2 as tolerated We will continue to follow I have personally seen and examined the patient, performed the documentation and the assessment and plan as written. Number of minutes spent on the visit: 10.
[2022-02-06] MEDS: ALPRAZolam 0.25 MG TAB PO SCH ×2 (16:55→23:11)
--- NOTE | 2022-02-06 16:57 | P.PN ---
Subjective Progress Note Date: 02/06/22 (delayed charting seen at 0945) Patient is a 76-year-old female with COPD on home O2 at 3 L, and just of heart failure, hypertension, and dyslipidemia who presented to the ER at the direction of her primary care physician due to hypoxemia. Patient was discharged home from [facility] yesterday after being found positive for COVID-19 and pneumonia. She is to be taking steroids and antibiotics. At home she was saturating 83% on 6 L with some increased work of breathing. She required a nonrebreather secondary to increased work of breathing. Initial laboratory evaluation was remarkable for acute white blood cell count of 24.3, d-dimer 7.87, BUN 33, lactic acid 2.1. Influenza A and B were negative. Chest x-ray showed patchy lower lobe infiltrate. Chest x-ray showed no evidence of pulmonary embolism with left lower lobe patchy consolidation concerning for pneumonia, small left pleural effusion, moderate to severe COPD changes, and few enlarged mediastinal lymph nodes. In the ER she was started on bronchodilators. Arrangements were made for admission. She was started on steroids and bronchdilators. Pulmonary was consulted. Negative lower extremity venous Dopple rs. Her Abx were continued with zosyn and vanco was stopped. Patient seen and examined at bedside. DOing better today, she has realized that her breathing is worse when anxious. We talked about the prognosis of her COPD and that she will likely continue to have these breathing spells and that we need to start symptom control and though benzos are not good as people age she may need them to help with breathing, she is in agreement we discussed home health and possible palliative at home to help with symptom control, she would like to meet with palliative and discuss what they can offer. General: nontoxic, no distress, appears at stated age Derm: warm, dry Head: atraumatic, normocephalic, symmetric Eyes: EOMI, no lid lag, anicteric sclera Mouth: no lip lesion, mucus membranes dry Cardiovascular: S1S2 reg, no murmur, positive posterior tibial pulse bilateral, Lungs: Coarse breath sounds bilateral, no rhonchi, no rales , no accessory muscle use Abdominal: soft, nontender to palpation, no guarding, no appreciable organomegaly Ext: no gross muscle atrophy, trace edema, no contractures Neuro: CN II-XI grossly intact, no focal neuro deficits Psych: Alert, oriented, appropriate affect Assessment/Plan: Complicated Pneumonia, suspect possible bacterial given how lobar it is, possible gram negative Acute on chronic hypoxic respiratory failure Acute exacerbation of COPD, moderate to severe on x-ray COVID-19 infection -procal is low but patient has been on abx. -pulm recs appreciated- continue zosyn D# 5 - await MRSA nasal swab - never collected -Bronchodilators -Steroids - vit D and Vit C - intolerant to zinc due to n/v - consult palliative care Chronic Heart failure, unknown ejection fraction Dyslipidemia Hypertension -Continue with Lasix, enalapril, Lipitor -Follow blood pressures -Patient is not chronically on beta blockers. Falls - PT/OT evaluation Hx of tobacco dependency - just quit after smoking since age 15 - continue nicotine replacement Chronic: GERD Hypothyroidism DVT prophylaxis: Lovenox Discussed with: patient, ED provider Anticipated discharge date: Pending clinical course Anticipated discharge place: [facility] versus home with home health A total of 35 minutes was spent on the care of this complex patient more than 50% of the time was spent in counseling and care coordination. Active Medications Generic Name Dose Route Start Last Admin Trade Name Freq PRN Reason Stop Dose Admin Albuterol Sulfate 2 puff 02/02/22 15:26 02/06/22 11:10 Albuterol Hfa Inhaler INHALATION 2 puff RT-QID PRN Administration Shortness Of Breath Or Wheezing Alprazolam 0.25 mg 02/06/22 16:00 Alprazolam 0.25 Mg Tab PO TID CORAZON Ascorbic Acid 1,000 mg 02/03/22 09:00 02/06/22 08:16 Ascorbic Acid 500 Mg Tab PO 1,000 mg DAILY CORAZON Administration Atorvastatin Calcium 20 mg 02/03/22 09:00 02/06/22 08:16 Atorvastatin 20 Mg Tab PO 20 mg DAILY CORAZON Administration Bisacodyl 10 mg 02/05/22 11:29 Bisacodyl 5 Mg Tablet.Dr PO DAILY PRN Constipation Budesonide/Formoterol Fumarate 2 puff 02/02/22 20:00 02/06/22 07:33 Symbicort 160-4.5 Mcg Inhaler INHALATION 2 puff RT-BID CORAZON Administration Cholecalciferol 100 mcg 02/03/22 09:00 02/06/22 08:16 Cholecalciferol 25 Mcg (1000 Iu) Tablet PO 100 mcg DAILY CORAZON Administration Dexamethasone Sodium Phosphate 6 mg 02/03/22 09:00 02/06/22 08:16 Dexamethasone Sod Phosphate 10 Mg/Ml 1 Ml Vial IVP 6 mg DAILY CORAZON Administration Enoxaparin Sodium 40 mg 02/03/22 09:00 02/06/22 08:17 Enoxaparin 40 Mg/0.4 Ml Syringe SQ 40 mg Q24HR CORAZON Administration Furosemide 20 mg 02/02/22 17:00 02/06/22 08:16 Furosemide 20 Mg Tab PO 20 mg BID@0900,1600 CORAZON Administration Guaifenesin 1,200 mg 02/02/22 21:00 02/06/22 08:16 Guaifenesin 600 Mg Tablet.Er PO 1,200 mg BID CORAZON Administration Piperacillin Sod/Tazobactam 100 mls @ 25 mls/hr 02/02/22 16:00 02/06/22 08:17 Sod 3.375 gm/ Sodium Chloride IVPB 02/07/22 16:01 25 mls/hr Q8HR CORAZON Administration Protocol Ibuprofen 400 mg 02/02/22 17:37 02/02/22 17:48 Ibuprofen 400 Mg Tab PO 400 mg Q6HR PRN Administration Pain Levothyroxine Sodium 88 mcg 02/03/22 06:30 02/06/22 06:27 Levothyroxine 88 Mcg Tab PO 88 mcg DAILY@0630 CORAZON Administration Lisinopril 20 mg 02/03/22 09:00 02/06/22 08:16 Lisinopril 20 Mg Tab PO 20 mg DAILY CORAZON Administration Melatonin 5 mg 02/02/22 16:30 Melatonin 5 Mg Tablet PO HS PRN Insomnia Miscellaneous Information 1 each 02/02/22 14:51 Pneumonia Protocol Utilized 1 Each Misc PO ONCE PRN Per Protocol Naloxone HCl 0.2 mg 02/02/22 15:20 Naloxone 0.4 Mg/Ml 1 Ml Vial IV Q2M PRN Opioid Reversal Nicotine 1 patch 02/03/22 09:00 02/06/22 08:15 Nicotine 21mg/24hr Patch TRANSDERM 1 patch DAILY CORAZON Administration Pantoprazole Sodium 40 mg 02/03/22 07:30 02/06/22 06:28 Pantoprazole 40 Mg Tablet PO 40 mg [id number] CORAZON Administration Polyethylene Glycol 17 gm 02/05/22 11:30 02/06/22 08:15 Polyethylene Glycol 3350 17 Gm Powd.Pack PO Not Given DAILY CORAZON Objective - Vital Signs Vital signs: Vital Signs Temp 97.0 F L 02/06/22 11:34 Pulse 73 02/06/22 14:17 Resp 21 02/06/22 14:17 BP 109/74 02/06/22 11:34 Pulse Ox 96 02/06/22 11:34 FiO2 Intake & Output 02/05/22 02/06/22 02/06/22 18:59 06:59 18:59 Intake Total 480 240 476 Output Total 1400 550 Balance -920 -310 476 Intake: Oral 480 240 476 Output: Urine 1400 550 Other: Voiding Method Bedside Commode Bedside Commode Bedside Commode # Voids 1 1 1 # Bowel Movements 1 1 - Labs CBC & Chem 7: 02/05/22 07:58 02/06/22 07:16 Labs: Abnormal Lab Results - Last 24 Hours (Table) 02/06/22 Range/Units 07:16 Carbon Dioxide 39 H (22-30) mmol/L BUN 22 H (7-17) mg/dL Creatinine 1.06 H (0.52-1.04) mg/dL Microbiology - Last 24 Hours (Table) 02/04/22 10:30 Gram Stain - Final Sputum Sputum Culture - Final Nadia albicans 02/02/22 14:41 Blood Culture - Preliminary Blood No Growth after 72 hours 02/02/22 15:00 Blood Culture - Preliminary Blood No Growth after 72 hours 02/05/22 08:20 Nasal Screen MRSA/MSSA - Preliminary Nasal Swab
[2022-02-07] MEDS: SYMBICORT 160-4.5 MCG INHALER INHALATION SCH ×3 (00:29→19:37)
[2022-02-07] MEDS: LEVOTHYROXINE 88 MCG TAB PO SCH (06:44)
[2022-02-07] MEDS: PANTOPRAZOLE 40 MG TABLET PO SCH (06:44)
[2022-02-07] MEDS: ALBUTEROL HFA INHALER INHALATION PRN ×3 (07:55→19:37)
[2022-02-07] MEDS: PIPERACILLIN-TAZOBACTAM 3.375 GM in SODIUM CHLORIDE 0.9% 100 ML IVPB SCH ×2 (10:10→17:14)
[2022-02-07] MEDS: NICOTINE 21MG/24HR PATCH TRANSDERM SCH (10:11)
[2022-02-07] MEDS: ENOXAPARIN 40 MG/0.4 ML SYRINGE SQ SCH (10:11)
[2022-02-07] MEDS: polyethylene glycoL 3350 17 GM POWD.PACK PO SCH (10:11)
[2022-02-07] MEDS: FUROSEMIDE 20 MG TAB PO SCH ×2 (10:14→17:15)
[2022-02-07] MEDS: ATORVASTATIN 20 MG TAB PO SCH (10:14)
[2022-02-07] MEDS: ALPRAZolam 0.25 MG TAB PO SCH ×3 (10:14→21:19)
[2022-02-07] MEDS: lisinopriL 20 MG TAB PO SCH (10:14)
[2022-02-07] MEDS: ASCORBIC ACID 500 MG TAB PO SCH (10:14)
[2022-02-07] MEDS: guaiFENesin 600 MG TABLET.ER PO SCH ×2 (10:15→21:19)
[2022-02-07] MEDS: DEXAMETHASONE SOD PHOSPHATE 10 MG/ML 1 ML VIAL IVP SCH (10:15)
[2022-02-07] MEDS: CHOLECALCIFEROL 25 MCG (1000 IU) TABLET PO SCH (10:16)
--- NOTE | 2022-02-07 11:56 | P.PN ---
Subjective Progress Note Date: 02/07/22 Patient says that she feels okay this morning. She is satting well on her home O2 at 3 L nasal cannula. Patient stated that she is not ready to go home yet. Patient says that she has been able to walk to the commode independently. She also says that she has a commode at home which is only 5 feet away from her bed. Patient states that she would like to go home. She stated that she has good support at home. She also doesn't take it easy when she goes home. Objective - Vital Signs Vital signs: Vital Signs Temp 97.4 F L 02/07/22 04:00 Pulse 76 02/07/22 08:00 Resp 16 02/07/22 08:00 BP 130/62 02/07/22 08:00 Pulse Ox 95 02/07/22 08:00 FiO2 Intake & Output 02/06/22 02/07/22 02/07/22 18:59 06:59 18:59 Intake Total 594 240 236 Balance 594 240 236 Intake: Oral 594 240 236 Other: Voiding Method Bedside Commode Bedside Commode Bedside Commode # Voids 1 1 1 # Bowel Movements 1 1 1 - Exam General examination - Alert and Oriented 3 in NAD, appears chronically debilitated Heart - + S1S2 no murmurs Lungs - diminished breath sounds bilaterally Abdomen soft NT ND +ve BS Extremities - No edema 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 Psych - Calm and cooperative - Labs CBC & Chem 7: 02/05/22 07:58 02/06/22 07:16 Labs: Microbiology - Last 24 Hours (Table) 02/05/22 08:20 Nasal Screen MRSA/MSSA - Final Nasal Swab 02/02/22 15:00 Blood Culture - Preliminary Blood No Growth after 96 hours 02/02/22 14:41 Blood Culture - Preliminary Blood No Growth after 96 hours 02/04/22 10:30 Gram Stain - Final Sputum Sputum Culture - Final Nadia albicans Assessment and Plan Assessment: Complicated Pneumonia, suspect possible bacterial given how lobar it is, possible gram negative Acute on chronic hypoxic respiratory failure Acute exacerbation of COPD, moderate to severe on x-ray COVID-19 infection -procal is low but patient has been on abx. -pulm recs appreciated- continue zosyn D# 5 - await MRSA nasal swab - never collected -Bronchodilators -Steroids - vit D and Vit C - intolerant to zinc due to n/v - Palliative care on board Dyslipidemia Resume Lipitor Hypertension -Continue with Lasix, enalapril, Lipitor -Follow blood pressures -Patient is not chronically on beta blockers. Falls - PT/OT evaluation -> recommending home with 24 7 supervision versus detention facility Patient states that she has 24 7 care at home and would like to go home. motor hotel manager has arranged for home care as well as home PT OT Hx of tobacco dependency - just quit after smoking since age 15 - continue nicotine replacement Chronic: GERD Hypothyroidism DVT prophylaxis: Lovenox Anticipated discharge date: Anticipate patient be ready for discharge in the next [address]: Home with home care
--- NOTE | 2022-02-07 14:35 | P.CONS ---
History of Present Illness - Reason for Consult Consult date: 02/07/22 Severe COPD/GOC Requesting physician: Vesna Galicia - Chief Complaint Shortness of breath - History of Present Illness Patient is a 76-year-old female with COPD on home O2 at 3 L, congestive heart failure, hypertension, and dyslipidemia who presented to the ER on 02/02/22 at the direction of her primary care physician due to hypoxemia. Patient was discharged home from [facility] yesterday after being found positive for COVID-19 and pneumonia. She is to be taking steroids and antibiotics. At home she was saturating 83% on 6 L with some increased work of breathing. She required a nonrebreather secondary to increased work of breathing. Initial laboratory evaluation was remarkable for acute white blood cell count of 24.3, d-dimer 7.87, BUN 33, lactic acid 2.1. Influenza A and B were negative. Chest x-ray showed patchy lower lobe infiltrate. Chest CT showed no evidence of pulmonary embolism with left lower lobe patchy consolidation concerning for pneumonia, small left pleural effusion, moderate to severe COPD changes, and few enlarged mediastinal lymph nodes. Review of Systems Constitutional: Reports as per HPI Past Medical History Past Medical History: Heart Failure, COPD, Hyperlipidemia, Hypertension Additional Past Medical History / Comment(s): GERD, Hypothyroidism History of Any Multi-Drug Resistant Organisms: None Reported Past Surgical History: No Surgical Hx Reported Past Anesthesia/Blood Transfusion Reactions: No Reported Reaction Past Psychological History: No Psychological Hx Reported Smoking Status: Current every day smoker, Former smoker Past Alcohol Use History: None Reported Past Drug Use History: None Reported - Past Family History family Family Medical History: Diabetes Mellitus Medications and Allergies Home Medications Medication Instructions Recorded Confirmed Type ALPRAZolam [Xanax] 0.25 mg PO HS PRN 08/31/17 02/02/22 History Albuterol Sulfate [Proair Hfa] 2 puff INHALATION RT-QID PRN 08/31/17 02/02/22 History Atorvastatin [Lipitor] 20 mg PO DAILY 08/31/17 02/02/22 History Budesonide/Formoterol Fumarate 2 puff INHALATION RT-BID 08/31/17 02/02/22 History [Symbicort 160-4.5 Mcg Inhaler] Enalapril [Vasotec] 10 mg PO DAILY 08/31/17 02/02/22 History Furosemide [Lasix] 20 mg PO BID 08/31/17 02/02/22 History Ascorbic Acid [Vitamin C] 500 mg PO DAILY 02/02/22 02/02/22 History Cholecalciferol [Vitamin D3 (25 50 mcg PO DAILY 02/02/22 02/02/22 History Mcg = 1000 Iu)] Dicyclomine [Bentyl] 10 mg PO DAILY PRN 02/02/22 02/02/22 History Ipratropium-Albuterol Nebulize 3 ml INHALATION RT-QID PRN 02/02/22 02/02/22 History [Duoneb 0.5 mg-3 mg/3 ml Soln] Levofloxacin [Levaquin] 250 mg PO DAILY 02/02/22 02/02/22 History Levothyroxine Sodium [Synthroid] 88 mcg PO DAILY 02/02/22 02/02/22 History Nicotine 21Mg/24Hr Patch [Habitrol] 1 patch TRANSDERM DAILY 02/02/22 02/02/22 History Omeprazole 20 mg PO DAILY 02/02/22 02/02/22 History Ondansetron [Zofran] 4 mg PO BID PRN 02/02/22 02/02/22 History Potassium Chloride [Potassium 10 meq PO DAILY 02/02/22 02/02/22 History Chloride ER] guaiFENesin [Mucinex] 1,200 mg PO BID 02/02/22 02/02/22 History predniSONE See Taper PO DIRECTED 02/02/22 02/02/22 History Allergies Allergy/AdvReac Type Severity Reaction Status Date / Time azithromycin [From Zithromax] Allergy Rash/Hives Verified 02/02/22 14:17 & Hot Flashes shellfish derived [Shrimp] AdvReac Vomiting Verified 02/02/22 14:17 zinc AdvReac Nausea & Verified 02/02/22 14:17 Vomiting Physical Exam Vitals: Vital Signs Temp Pulse Resp BP BP Pulse Ox 02/07/22 12:00 74 16 113/54 96 02/07/22 08:00 76 16 130/62 95 02/07/22 07:55 92 L 02/07/22 04:00 97.4 F L 61 18 131/60 93 L 02/06/22 23:44 97.4 F L 61 18 118/56 98 02/06/22 20:00 98 F 65 20 119/57 96 02/06/22 16:52 98.8 F 77 21 114/86 94 L 02/06/22 14:17 73 21 Intake and Output 02/06/22 02/07/22 02/07/22 22:59 06:59 14:59 Intake Total 358 354 Balance 358 354 Intake: Oral 358 354 Other: Voiding Method Bedside Commode Bedside Commode Bedside Commode # Voids 1 1 1 # Bowel Movements 1 1 1 General: Well developed, well nourished. Chronically ill appearing HEENT: Head is atraumatic, normocephalic. Sclera are clear. Mucus membranes dry. CV: Heart regular in rate and rhythm positive S1 and S2. Lungs: DIminished bases, scattered rhonchi. Abdomen/GI: Soft.No guarding, rigidity, or abdominal tenderness. Musculoskeletal/ Extremities: ESCALERA, no joint deformity or swelling. No gross atrophy. + generalized weakness Vascular: Radial pulses equal. 2/4. Trace peripheral edema Skin: Warm and dry Neurologic: Awake, alert and oriented times 3. CN II-XII grossly intact. No focal deficits. Psychiatric: Appropriate mood and affect. 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 * Marital status - * Children/grandchildren - 3 adult children * Residence - House * Who do you reside with - with daughter, and grandson * Tobacco - Quit in the beginning of the month, on nicotine patch currently * Illicit drugs - NO Spiritual/Cultural * A spiritual person - " A little" * Jain - Confucianism * Belong to a particular zoroastrianism - No * Beliefs a source of comfort and strength - Yes * Sabianism or cultural practices restrictions - No * EOL considerations/rituals -No Functional Assessment * Able to walk independently - Yes * Assistive devices - Walker and care * Able to use the bathroom independently - Yes * Continent - Yes * Require assistance bathing- No * Able to feed self - Yes * Who prepares meals - Daughter * How many meals a day eaten - 3 * Able to clean house/do laundry - A little * Transportation - She quit driving, her family provides transportation * Able to shop -Yes, with motorized scooter * Who manages medications - Patient * Who manages finances - Patient and daughter Psychological/Emotional * Dementia present - No * Insight and judgment - Intact * Depression - No * Suicidal thoughts - No * Good support system - Yes * Patients goals - prolonged survival * Frequent hospitalizations - Yes * Desire to keep coming back to the hospital for treatment - No Symptoms * Pain - 0/10, Continue Motrin prn * Fatigue - Low energy level * SOB - Yes, continue Ventolin, Zosyn, Lasix, Symbicort, and Decadron * Insomnia - Yes, continue melatonin * N/V - No * Anxiety - Yes, continue Xanax prn * Depression - No * Confusion - No * Agitation - No * Hallucinations - No * Appetite/weight loss - No recent weight loss, good appetite. On heart healthy diet * Dysphagia - No * Constipation - Yes, continue Dulcolax and miralax * Incontinence - No * Itch - No * Cough - Yes, productive, continue Mucinex Plan: Summary/Goals - The patient is awake and seems anxious. Palliative care philosophies explained to patient. Her goals are for prolonged survival. Edu cation regarding severe COPD, including the trajectory of her disease, provided. Patient states she would like to have OP palliative care upon discharge. She does not want to keep coming back to the hospital and would like to be managed at home. She describes her home as chaotic. She believes the added support will helpful. Smoking cessation encouraged. Recommendations - Home with C and OP palliative care Advanced Directives - None on file Code Status - DNR Thank you for this consultation Kiya Adam [facility] Palliative Care [facility] [id number] Email: [email or web address] Time with Patient: Greater than 30
--- NOTE | 2022-02-07 15:00 | P.PN ---
Subjective Progress Note Date: 02/07/22 This is a pleasant 76-year-old female patient with a known history of hypertension, hypothyroidism, hyperlipidemia, chronic pulmonary fibrosis with mostly scarring of the right apex, chronic and ongoing tobacco dependence, severe oxygen dependent chronic obstructive pulmonary disease with an FEV1 value of 40% of predicted. She was recently admitted to [facility] with COVID-19 pneumonia. She was discharged on 01/01/2022 and then brought here to the emergency room on 01/02/2022 with ongoing issues with shortness of breath, cough and congestion. The patient is vaccinated but not boosted. Chest x-ray does reveal a left basilar patchy airspace disease with a small left effusion. Chronic interstitial changes noted. CT angiogram revealed no evidence of pulmonary embolism. There is again noted left lower lobe patchy consolidation. Small left pleural effusion. Dopplers of the bilateral lower extremity are negative for DVT. White count 20.6. Hemoglobin 10.2. Lymphocytes 0.7. Sodium 142. Potassium 4.1. BUN 29. Creatinine 0.89. Pro calcitonin 0.12. BNP 2120. Troponin negative. Influenza screen negative. Arterial blood gases on 45% FiO2 revealed a pO2 of 66, pCO2 of 40, pH 7.48. She is seen today in consultation on the regular medical floor. She is currently awake and alert in no acute distress. Maintaining O2 saturations in the 90s on 5 L high flow nasal cannula. She's been afebrile. Hemodynamically stable. She's been initiated on Albuterol HFA, Symbicort, Decadron. Lovenox for DVT prophylaxis. NicoDerm patch is in place. Antibiotics in the form of vancomycin and Zosyn. The patient is seen today 02/04/2022 in follow-up on the selective care unit. She is currently sitting up in bed. Awake and alert in no acute distress. Maintaining good O2 saturations in the 90s on 3 L/m per nasal cannula. Blood cultures reveal no growth. White count 17.1. Hemoglobin 10.8. Sodium 142. Potassium 4.1 BUN 27. Creatinine 0.95. Glucose 120. She is continued on vitamin supplements, Decadron, Lovenox. She remains on Symbicort and albuterol HFA. Antibiotics in the form of Zosyn. NicoDerm patch in place. The patient is seen today 02/06/2022 in follow-up on the selective care unit. She is currently resting comfortably in bed. Awake and alert in no acute distress. Maintaining O2 saturations in the 90s on 3 L/m per nasal cannula. She's been afebrile. Hemodynamically stable. Sputum positive for Nadia. Blood cultures reveal no growth. Sodium 141. Potassium 3.8. BUN 22. Creatinine 1.06. She is continued on Decadron, Lovenox, vitamin supplements. Continue on Symbicort and albuterol. Antibiotics in the form of Zosyn. The patient is seen today 02/07/2022 in follow-up on the selective care unit. Awake and alert in no acute distress. Sitting up at the bedside. Feeling nearly back to her baseline. O2 saturations in the upper 90s on 2 L/m per nasal cannula. She is continued on Decadron, Lovenox, vitamin supplements. Continue o n Symbicort and albuterol. Antibiotics in the form of Zosyn. NicoDerm patch in place. Objective - Vital Signs Vital signs: Vital Signs Temp 97.4 F L 02/07/22 04:00 Pulse 74 02/07/22 12:00 Resp 16 02/07/22 12:00 BP 113/54 02/07/22 12:00 Pulse Ox 96 02/07/22 12:00 FiO2 Intake & Output 02/06/22 02/07/22 02/07/22 18:59 06:59 18:59 Intake Total 594 240 354 Balance 594 240 354 Intake: Oral 594 240 354 Other: Voiding Method Bedside Commode Bedside Commode Bedside Commode # Voids 1 1 1 # Bowel Movements 1 1 1 - Exam GENERAL EXAM: Alert, 76-year-old female, on 2 L nasal cannula, fairly comfortable in no apparent distress. HEAD: Normocephalic. EYES: Normal reaction of pupils, equal size. NOSE: Clear with pink turbinates. THROAT: No erythema or exudates. NECK: No masses, no JVD. CHEST: No chest wall deformity. LUNGS: Equal air entry with crackles, scattered rhonchi in the left lung base. CVS: S1 and S2 normal with no audible murmur, regular rhythm. ABDOMEN: No hepatosplenomegaly, normal bowel sounds, no guarding or rigidity. SPINE: No scoliosis or deformity SKIN: No rashes CENTRAL NERVOUS SYSTEM: No focal deficits, tone is normal in all 4 extremities. EXTREMITIES: There is no peripheral edema. No clubbing, no cyanosis. Peripheral pulses are intact. - Labs CBC & Chem 7: 02/05/22 07:58 02/06/22 07:16 Labs: Microbiology - Last 24 Hours (Table) 02/05/22 08:20 Nasal Screen MRSA/MSSA - Final Nasal Swab 02/02/22 15:00 Blood Culture - Preliminary Blood No Growth after 96 hours 02/02/22 14:41 Blood Culture - Preliminary Blood No Growth after 96 hours 02/04/22 10:30 Gram Stain - Final Sputum Sputum Culture - Final Nadia albicans Assessment and Plan Assessment: Acute on chronic hypoxemic respiratory failure secondary to COVID-19 pneumonia. Possible healthcare acquired pneumonia in the left lower lobe. Pro-calcitonin 0.12. Recent admission to outside facility for COVID-19 pneumonia Severe chronic obstructive pulmonary disease, oxygen dependent, FEV1 value of 40% of predicted Chronic and ongoing tobacco dependence of over 50 years Hypertension Hypothyroidism Hyperlipidemia Chronic cor pulmonale Chronic pulmonary fibrosis with scarring mostly at the right apex Plan: The patient was seen and evaluated Medications reviewed Follow-up chest x-ray stable Discontinue Zosyn No need for further antibiotics Continue her home pulmonary medications Again educated regarding the importance of complete smoking cessation NicoDerm patch in place Cleared for discharge from the pulmonary standpoint I have personally seen and examined the patient, performed the documentation and the assessment and plan as written. Number of minutes spent on the visit: 10.
[2022-02-08 04:57] VITALS: TEMP 98.2
[2022-02-08] MEDS: LEVOTHYROXINE 88 MCG TAB PO SCH (06:39)
[2022-02-08] MEDS: PANTOPRAZOLE 40 MG TABLET PO SCH (06:39)
[2022-02-08] MEDS: SYMBICORT 160-4.5 MCG INHALER INHALATION SCH (09:08)
[2022-02-08] MEDS: ALBUTEROL HFA INHALER INHALATION PRN (09:08)
[2022-02-08] MEDS: NICOTINE 21MG/24HR PATCH TRANSDERM SCH (09:23)
[2022-02-08] MEDS: ASCORBIC ACID 500 MG TAB PO SCH (09:24)
[2022-02-08] MEDS: DEXAMETHASONE SOD PHOSPHATE 10 MG/ML 1 ML VIAL IVP SCH (09:24)
[2022-02-08] MEDS: CHOLECALCIFEROL 25 MCG (1000 IU) TABLET PO SCH (09:24)
[2022-02-08] MEDS: ENOXAPARIN 40 MG/0.4 ML SYRINGE SQ SCH (09:24)
[2022-02-08] MEDS: ALPRAZolam 0.25 MG TAB PO SCH (09:24)
[2022-02-08] MEDS: FUROSEMIDE 20 MG TAB PO SCH (09:24)
[2022-02-08] MEDS: guaiFENesin 600 MG TABLET.ER PO SCH (09:24)
[2022-02-08] MEDS: lisinopriL 20 MG TAB PO SCH (09:25)
[2022-02-08] MEDS: polyethylene glycoL 3350 17 GM POWD.PACK PO SCH (09:25)
[2022-02-08] MEDS: ATORVASTATIN 20 MG TAB PO SCH (09:25)
[2022-02-08 09:35] VITALS: BP 94/44; PULSE 71; RESP 16
--- NOTE | 2022-02-08 10:38 | P.DS ---
Providers Date of admission: 02/02/22 15:21 Attending physician: Santo Bagley MD Consults: 02/02/22 15:20 Consult Physician Urgent Consulting Provider: Amanda Rand Reason/Comments: acute/chronic hypoxic resp failure, covid, CAP Do you want consulting provider notified?: Yes 02/04/22 13:25 Consult to Palliative Care Routine Consulting Provider: Kiya Adam Consult Reason/Comments: severe COPD and COVID, GOC Do you want consulting provider notified?: Yes 02/06/22 16:52 Consult to Palliative Care Routine Consulting Provider: Kiya Adam Consult Reason/Comments: severe COPD and COVID, GOC Do you want consulting provider notified?: Yes Primary care physician: Ricardo Lam MD Hospital Course: Discharge Diagnosis: Complicated pneumonia Acute on chronic hypoxic respiratory failure Acute exacerbation of COPD COVID-19 infection Dyslipidemia Hypertension Multiple falls at home History of tobacco dependency GERD Hypothyroidism Hospital Course: Patient is a 76-year-old female with COPD on home O2 at 3 L, and just of heart failure, hypertension, and dyslipidemia who presented to the ER at the direction of her primary care physician due to hypoxemia. Patient was discharged home from [facility] yesterday after being found positive for COVID-19 and pneumonia. She is to be taking steroids and antibiotics. At home she was saturating 83% on 6 L with some increased work of breathing. She required a nonrebreather secondary to increased work of breathing. Initial laboratory evaluation was remarkable for acute white blood cell count of 24.3, d-dimer 7.87, BUN 33, lactic acid 2.1. Influenza A and B were negative. Chest x-ray showed patchy lower lobe infiltrate. CTA chest showed no evidence of pulmonary embolism with left lower lobe patchy consolidation concerning for pneumonia, small left pleural effusion, moderate to severe COPD changes, and few enlarged mediastinal lymph nodes. In the ER she was started on bronchodilators. Arrangements are made for admission. Patient was started on dexamethasone for COVID-19. Patient was also started on Zosyn for pneumonia. Patient completed a 5 day antibiotic course. At the time of discharge patient was satting well on her home O2 of 3 L. Patient was then deemed stable for discharge. Patient also cleared by pulmonology for discharge. Patient was scared to go home because she is worried she would COVID-19 again. Patient was provided with counseling and reassurance. Patient then amenable to going home. education general manager arranged for home care as well as home physical therapy. Patient is now satting well on her home O2 so no need for further steroids. Patient seen and examined at bedside.[] Vital signs reviewed and stable. General: [non toxic], [no distress], appears chronically debilitated Derm: [warm], [dry] Head: [atraumatic], [normocephalic], [symmetric] Eyes: [EOMI], [no lid lag], [anicteric sclera] Mouth: [no lip lesion], [mucus membranes moist] Cardiovascular: [S1S2 reg], [no murmur], [positive posterior tibial pulse bilateral], Lungs: [Diminished breath sounds bilaterally, [no rhonchi, no rales] , [no accessory muscle use] Abdominal: [soft], [ nontender to palpation], [no guarding], [no appreciable organomegaly] Ext: [no gross muscle atrophy], [no edema], [no contractures] Neuro: [ CN II-XI grossly intact], [no focal neuro deficits] Psych: [Alert], [oriented], [appropriate affect] A total of [33] minutes of time were spent preparing this complex discharge summary . Patient Condition at Discharge: Serious Plan - Discharge Summary New Discharge Prescriptions: Continue Budesonide/Formoterol Fumarate [Symbicort 160-4.5 Mcg Inhaler] 2 puff INHALATION RT-BID Albuterol Sulfate [Proair Hfa] 2 puff INHALATION RT-QID PRN PRN Reason: Shortness Of Breath Furosemide [Lasix] 20 mg PO BID Atorvastatin [Lipitor] 20 mg PO DAILY ALPRAZolam [Xanax] 0.25 mg PO HS PRN PRN Reason: Anxiety Enalapril [Vasotec] 10 mg PO DAILY Cholecalciferol [Vitamin D3 (25 Mcg = 1000 Iu)] 50 mcg PO DAILY Dicyclomine [Bentyl] 10 mg PO DAILY PRN PRN Reason: ibs guaiFENesin [Mucinex] 1,200 mg PO BID Ipratropium-Albuterol Nebulize [Duoneb 0.5 mg-3 mg/3 ml Soln] 3 ml INHALATION RT-QID PRN PRN Reason: Shortness Of Breath Levothyroxine Sodium [Synthroid] 88 mcg PO DAILY Ascorbic Acid [Vitamin C] 500 mg PO DAILY Nicotine 21Mg/24Hr Patch [Habitrol] 1 patch TRANSDERM DAILY Omeprazole 20 mg PO DAILY Potassium Chloride [Potassium Chloride ER] 10 meq PO DAILY Ondansetron [Zofran] 4 mg PO BID PRN PRN Reason: Nausea And Vomiting Discontinued Levofloxacin [Levaquin] 250 mg PO DAILY predniSONE See Taper PO DIRECTED Discharge Medication List ALPRAZolam [Xanax] 0.25 mg PO HS PRN 08/31/17 [History] Albuterol Sulfate [Proair Hfa] 2 puff INHALATION RT-QID PRN 08/31/17 [History] Atorvastatin [Lipitor] 20 mg PO DAILY 08/31/17 [History] Budesonide/Formoterol Fumarate [Symbicort 160-4.5 Mcg Inhaler] 2 puff INHALATION RT-BID 08/31/17 [History] Enalapril [Vasotec] 10 mg PO DAILY 08/31/17 [History] Furosemide [Lasix] 20 mg PO BID 08/31/17 [History] Ascorbic Acid [Vitamin C] 500 mg PO DAILY 02/02/22 [History] Cholecalciferol [Vitamin D3 (25 Mcg = 1000 Iu)] 50 mcg PO DAILY 02/02/22 [History] Dicyclomine [Bentyl] 10 mg PO DAILY PRN 02/02/22 [History] Ipratropium-Albuterol Nebulize [Duoneb 0.5 mg-3 mg/3 ml Soln] 3 ml INHALATION RT-QID PRN 02/02/22 [History] Levothyroxine Sodium [Synthroid] 88 mcg PO DAILY 02/02/22 [History] Nicotine 21Mg/24Hr Patch [Habitrol] 1 patch TRANSDERM DAILY 02/02/22 [History] Omeprazole 20 mg PO DAILY 02/02/22 [History] Ondansetron [Zofran] 4 mg PO BID PRN 02/02/22 [History] Potassium Chloride [Potassium Chloride ER] 10 meq PO DAILY 02/02/22 [History] guaiFENesin [Mucinex] 1,200 mg PO BID 02/02/22 [History] Follow up Appointment(s)/Referral(s): Ricardo Lam MD [Primary Care Provider] - 1-2 days Felipe Serna DO [Doctor of Osteopathic Medicine] - 1 Week [facility], [NON-STAFF] - Discharge Disposition: HOME WITH HOME HEALTH SERVICES
[2022-02-08 12:06] VITALS: BMI 21.7
--- NOTE | 2022-02-08 22:57 | PN ---
PROGRESS NOTE This is a pulmonary/critical care progress note. SUBJECTIVE: This is a 76-year-old female, who is again seen in room 375. The patient is currently getting saline at 10 mL an hour and oxygen at 3 L. She is feeling much improved. The patient is hoping to be discharged soon. She was recently at [facility], left there, because she was dissatisfied. OBJECTIVE: VITAL SIGNS: Current vital signs; temperature 98.2, heart rate 71, respiratory rate 16, blood pressure 94/44, mean 60 and 2 L saturation between 92% and 97%. GENERAL: Appears in no acute distress. HEENT: Grossly unremarkable. NECK: Supple. CARDIOVASCULAR: Reveals regular rhythm and rate. S1, S2 normal. Heart rate 71. LUNGS: Some diminished breath sounds. No wheezes or rhonchi. Breath sounds are diminished throughout. There is slight prolongation. ABDOMEN: Soft. Bowel sounds are heard. EXTREMITIES: Intact. No edema. SKIN: Without rash. NEUROLOGIC: Brief, but nonfocal. LABORATORY DATA: Reviewed. Nothing new to report. Microbiology is negative. This includes a nasal swab for MRSA, sputum, blood, and urine. ASSESSMENT: 1. Acute on chronic hypoxemic respiratory failure secondary to coronavirus-associated pneumonia. The patient may also have healthcare-acquired pneumonia involving the left lower lobe. 2. Recent admission to outside facility for coronavirus pneumonia. 3. Severe chronic obstructive pulmonary disease, oxygen dependent with an FEV1 that is 40% of predicted. 4. Chronic and ongoing tobacco dependence. 5. Hypertension. 6. Hypothyroidism. 7. Hyperlipidemia. 8. Chronic cor pulmonale. 9. Chronic pulmonary fibrosis. PLAN: The patient is doing relatively well. The patient will likely be discharged in the near future. No additional recommendations are made. She will follow up in the office with my partner, who sees her for her COPD. We will continue to follow. Prognosis is guarded. MMODL / IJN: [id number] /
== END 2022-02-08 12:14 | disposition home health service (06) | DRG 177 ==
LOC: EC 10:54 → 3SCARD 15:21
PROVIDERS: ADMIT Family Medicine; ATTEND Family Medicine
PROC: 3E0333Z Introduction of Anti-inflammatory into Peripheral Vein, Percutaneous Approach (ICD-10-PCS; principal; 2022-02-04)
DX: U07.1 COVID-19 (principal); J12.82 Pneumonia due to coronavirus disease 2019; J96.21 Acute and chronic respiratory failure with hypoxia; J44.0 Chronic obstructive pulmonary disease with (acute) lower respiratory infection; J44.1 Chronic obstructive pulmonary disease with (acute) exacerbation; I11.0 Hypertensive heart disease with heart failure; I50.9 Heart failure, unspecified; E03.9 Hypothyroidism, unspecified; E78.5 Hyperlipidemia, unspecified; F41.9 Anxiety disorder, unspecified; G47.00 Insomnia, unspecified; J84.10 Pulmonary fibrosis, unspecified; I27.81 Cor pulmonale (chronic); K21.9 Gastro-esophageal reflux disease without esophagitis; K59.00 Constipation, unspecified; R29.6 Repeated falls; Z87.891 Personal history of nicotine dependence; Z79.51 Long term (current) use of inhaled steroids; Z79.890 Hormone replacement therapy; Z79.899 Other long term (current) drug therapy; Z90.710 Acquired absence of both cervix and uterus; Z99.81 Dependence on supplemental oxygen
CPT/HCPCS: 36415; 36600; 71045; 71275; 80048; 80053; 82805; 83605; 83735; 83880; 84100; 84145; 84484; 85025; 85027; 85379; 85610; 85730; 87040; 87070; 87205; 87502; 93005; 93970; 94640; 94760; 96365; 96374; 96375; 99285

== ENCOUNTER → 2022-10-27 | Outpatient (CLI) | payer MEDICARE ==
[2022-10-27 13:02] LABS: African American GFR (CKD) 76 (>60 ml/min/1.73 sqM); Blood Urea Nitrogen 28 mg/dL (7-17); Non-African American GFR(CKD) 66 (>60 ml/min/1.73 sqM)
--- NOTE | 2022-10-27 14:46 | CT ---
EXAMINATION TYPE: CT brain wo/w con DATE OF EXAM: 10/27/2022 COMPARISON: None HISTORY: Cognitive Decline CT DLP: 2355.40 mGycm Automated exposure control for dose reduction was used. CONTRAST: CT scan of the head is performed without and with IV Contrast, patient injected with 2355.40 mL of Is ovue 370. FINDINGS: There is changes of chronic sinusitis and left mastoiditis. Abnormal attenuation within the left exte rnal auditory canal likely relating airway. Calvarium is intact. There does appear to be localized demineralization of the left parietal calvariu m. Orbits are symmetric. Craniocervical junction maintained. There is moderate generalized degenerative change. Mild hypoattenuation in the white matter is compatible with old microvascular ischemic change s. There is no midline shift or mass effect. No enhancing mass. IMPRESSION: 1. Moderate nonspecific white matter changes most typical remote white matter microvascular ischemia. No enhancing mass or acute hemorrhage. 2. Chronic sinusitis in left mastoiditis.
== END | disposition home or self-care (01) ==
LOC: RADCTMAIN 12:21
PROVIDERS: ATTEND Family Medicine
DX: J32.9 Chronic sinusitis, unspecified (principal); I67.82 Cerebral ischemia; H70.92 Unspecified mastoiditis, left ear; R90.82 White matter disease, unspecified; R41.89 Other symptoms and signs involving cognitive functions and awareness
CPT/HCPCS: 82565; 84520; 70470; 36415; Q9967